=== PATIENT | female | born 1950 | race Caucasian/White ===

== ENCOUNTER 2018-10-29 19:17 | Emergency (ER) | payer MEDICARE, MEDICAID ==
[~2018-10-29] VITALS: Ht 167.6 cm; Wt 101.6 kg
--- NOTE | 2018-10-29 19:30 | ED Respiratory ---
General Chief Complaint: Respiratory Problems Stated Complaint: SOB History of Present Illness Date Seen by Provider: Oct 29, 2018 Time Seen by Provider: 19:30 Initial Comments 68 yo f known copd not on home oxygen, prior pe (per her report diagnosed in [place]) , Prior "collapsed lung" treated with bronchoscopy at [place] as well. p/w 2 weeks of sob and increassed cough generalized malaise no definite fever, no jamilah pain. then today three hours ago got acutely worse was much more sob and began to feel posterior left side chest pain Allergies and Home Medications Allergies Coded Allergies: No Known Drug Allergies (Unverified , 10/29/18) Patient Home Medication List Home Medication List Reviewed: Yes Review of Systems Review of Systems Constitutional: see HPI Respiratory: see HPI Cardiovascular: see HPI Gastrointestinal: no symptoms reported All Other Systems Reviewed Negative Unless Noted: Yes Past Rshocrv-Sadfrc-Bjjrtf Hx Past Med/Social Hx: Reviewed Nursing Past Med/Soc Hx Patient Social History Recent Foreign Travel: No Contact w/Someone Who Travel: No Physical Exam Vital Signs - First Documented 10/29/18 19:20 Temp 97.5 Pulse 116 Resp 22 B/P (MAP) 107/61 (76) Pulse Ox 90 O2 Delivery Nasal Cannula O2 Flow Rate 4.00 FiO2 90 Capillary Refill : Height: '" Weight: lbs. oz. kg; BMI Method: General Appearance: moderate distress HEENT: PERRL/EOMI Neck: non-tender, full range of motion Respiratory: other (moderate distress speaking only two or three word sentences. coarse b/l breath sounds decreased on the left. ) Cardiovascular: other (tachyardic difficult exam due to resp. tachypnea present.) Gastrointestinal: non tender, soft, no organomegaly Extremities: normal range of motion, other (b/l left greater than right 1-2 plus edema.) Neurologic/Psychiatric: no motor/sensory deficits, alert, other (anxiety but alert and oriented.) Skin: normal color, warm/dry Focused Exam Lactate Level 10/29/18 20:10: Lactic Acid Level 0.99 Lactic Acid Level Laboratory Tests Test 10/29/18 20:10 Lactic Acid Level 0.99 MMOL/L (0.50-2.00) Progress/Results/Core Measures Suspected Sepsis SIRS Temperature: Pulse: Respiratory Rate: Laboratory Tests 10/29/18 19:22: White Blood Count 20.4H Blood Pressure / Mean: 10/29/18 20:10: Lactic Acid Level 0.99 Laboratory Tests 10/29/18 19:22: Creatinine 0.69, INR Comment 1.1, Platelet Count 394, Total Bilirubin 0.4 Results/Orders Lab Results Laboratory Tests Test 10/29/18 19:22 10/29/18 20:10 Range/Units White Blood Count 20.4 H 4.3-11.0 10^3/uL Red Blood Count 5.67 4.35-5.85 10^6/uL Hemoglobin 14.7 11.5-16.0 G/DL Hematocrit 45 35-52 % Mean Corpuscular Volume 79 L 80-99 FL Mean Corpuscular Hemoglobin 26 25-34 PG Mean Corpuscular Hemoglobin Concent 33 32-36 G/DL Red Cell Distribution Width 14.6 H 10.0-14.5 % Platelet Count 394 130-400 10^3/uL Mean Platelet Volume 9.1 7.4-10.4 FL Neutrophils (%) (Auto) 79 H 42-75 % Lymphocytes (%) (Auto) 15 12-44 % Monocytes (%) (Auto) 5 0-12 % Eosinophils (%) (Auto) 1 0-10 % Basophils (%) (Auto) 0 0-10 % Neutrophils # (Auto) 16.1 H 1.8-7.8 X 10^3 Lymphocytes # (Auto) 3.0 1.0-4.0 X 10^3 Monocytes # (Auto) 1.1 H 0.0-1.0 X 10^3 Eosinophils # (Auto) 0.1 0.0-0.3 10^3/uL Basophils # (Auto) 0.0 0.0-0.1 10^3/uL Neutrophils % (Manual) 68 % Lymphocytes % (Manual) 7 % Monocytes % (Manual) 8 % Eosinophils % (Manual) 1 % Band Neutrophils 12 % Atypical Lymphocytes 4 % Prothrombin Time 14.6 12.2-14.7 SEC INR Comment 1.1 0.8-1.4 Sodium Level 120 *L 135-145 MMOL/L Potassium Level 4.8 3.6-5.0 MMOL/L Chloride Level 84 L 98-107 MMOL/L Carbon Dioxide Level 19 L 21-32 MMOL/L Anion Gap 17 H 5-14 MMOL/L Blood Urea Nitrogen 19 H 7-18 MG/DL Creatinine 0.69 0.60-1.30 MG/DL Estimat Glomerular Filtration Rate > 60 BUN/Creatinine Ratio 28 Glucose Level 123 H 70-105 MG/DL Calcium Level 9.7 8.5-10.1 MG/DL Corrected Calcium 9.9 8.5-10.1 MG/DL Total Bilirubin 0.4 0.1-1.0 MG/DL Aspartate Amino Transf (AST/SGOT) 17 5-34 U/L Alanine Aminotransferase (ALT/SGPT) 13 0-55 U/L Alkaline Phosphatase 93 40-136 U/L Troponin T 11 H <=10 NG/L Pro-B-Type Natriuretic Peptide 48.8 <75.0 PG/ML Total Protein 6.9 6.4-8.2 GM/DL Albumin 3.7 3.2-4.5 GM/DL Lactic Acid Level 0.99 0.50-2.00 MMOL/L Micro Results Microbiology 10/29/18 Influenza Types A,B Antigen (CHON) - Final, Complete My Orders Orders - JENNY BENJAMIN MD Chest 1 View Ap/Pa Only (10/29/18 19:41) Ekg Tracing (10/29/18 19:41) O2 (10/29/18 19:41) Saline Lock/Iv-Start (10/29/18 19:41) Monitor-Rhythm Ecg Trace Only (10/29/18 19:41) Albuterol/Ipra Inhalation Soln (Duoneb I (10/29/18 19:45) Svn Small Volume Nebulizer (10/29/18 19:41) Methylprednisolone Sod Succ (Solu-Medrol (10/29/18 19:45) Cbc And Manual Diff (10/29/18 19:41) Comprehensive Metabolic Panel (10/29/18 19:41) Troponin T (10/29/18 19:41) Blood Culture (10/29/18 19:45) Lactic Acid Analyzer (10/29/18 19:41) Blood Culture (10/29/18 19:41) Protime With Inr (10/29/18 19:41) Probnp Fs (10/29/18 20:02) Ua Culture If Indicated (10/29/18 20:09) Influenza A And B Antigens (10/29/18 20:09) Vancomycin Injection (Vancomycin Injecti (10/29/18 21:00) Piperacillin/Tazobactam (Bulk) (Zosyn In (10/29/18 21:00) Lorazepam Injection (Ativan Injection) (10/29/18 21:00) Ns Iv 1000 Ml (Sodium Chloride 0.9%) (10/29/18 21:15) Rivaroxaban Tablet (Xarelto Tablet) (10/29/18 21:15) Vancomycin Injection (Vancomycin Injecti (10/29/18 21:07) Water (Sterile) For Injection (Sterile W (10/29/18 21:07) Ns (Ivpb) (Sodium Chloride 0.9%) (10/29/18 21:07) Medications Given in ED Current Medications Medications Dose Ordered Sig/Salvador Route Start Time Stop Time Status Last Admin Dose Admin Albuterol/ Ipratropium 3 ml ONCE ONCE INH 10/29/18 19:45 10/29/18 19:46 DC 10/29/18 20:04 3 ML Lorazepam 0.5 mg ONCE ONCE IVP 10/29/18 21:00 10/29/18 21:01 UNV 10/29/18 21:12 0.5 MG Methylprednisolone Sodium Succinate 125 mg ONCE ONCE IVP 10/29/18 19:45 10/29/18 19:46 DC 10/29/18 20:04 125 MG Rivaroxaban 15 mg ONCE ONCE PO 10/29/18 21:15 10/29/18 21:16 UNV 10/29/18 21:33 15 MG Vital Signs/I&O 10/29/18 10/29/18 10/29/18 19:20 19:20 19:20 Temp 97.5 97.5 Pulse 116 116 Resp 22 22 B/P (MAP) 107/61 (76) 107/61 (76) Pulse Ox 90 90 90 O2 Delivery Nasal Cannula Nasal Cannula Nasal Cannula O2 Flow Rate 4.00 4.00 FiO2 90 Capillary Refill : Progress Note : Progress Note known copd not on oxygen, pe on xarelto p/w acute on subacute sob found to be hypoxic, 90 on 3-4 Liters , increased sob ddx pe, pna ptx FINDINGS: There is obscuration of the left hemidiaphragm consistent with left lower lobe infiltrate and probable effusion. Mild alveolar infiltrate, medially, in the right lung base. The upper lungs are clear. Heart is mildly enlarged. No evidence of pulmonary edema. IMPRESSION: Findings are consistent with bilateral lower lobe pneumonia, more severe on the left. 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 pt looked beter after duoneb in er, vanc/zosyn given (reports hx of mrsa and what sounds like septic shock at [place] last year), iv fluids given noted hyponatermia, pt is on hctz and also sick with pulmonary issues, will start with iv fluids and go from there. considered pe, seems like due to the above pna is much more likely diagnosis. would rather not delay transport any further at this time for further testing as we are in a freestanding er at this time. gave dose of xarelto (second dose for today) in case of small new pe although again i find pna to be much morfe likely dx. d/w boone doctor at [facility] who has accepted the patient in transfer. pt and son are aware of the plan and they voiced understanding. ECG Comment sinsu tach rate 109 v2 abnormal no stemi. intervals normal. Departure Impression Primary Impression: Pneumonia Additional Impression: Hyponatremia Disposition: XFER SHT-TRM HOSP Condition: Stable Transfer Method of Transfer: EMS Departure-Patient Inst. Referrals: NO,LOCAL PHYSICIAN (PCP) Primary Care Physician JENNY BENJAMIN MD Oct 29, 2018 19:30
[2018-10-29] MEDS ORDERED: RT-ALBUTEROL/IPRATROPIUM 3 ML (DUONEB) VIAL INH ONE (19:45)
[2018-10-29] MEDS ORDERED: methylPREDNISolone 125 MG (Solu-MEDROL) VIAL IVP ONE (19:45)
[2018-10-29 19:57] LABS: HEMATOCRIT 45 % (35-52); HEMOGLOBIN 14.7 G/DL (11.5-16.0); MEAN CORPUSCULAR HEMOGLOBIN 26 PG (25-34); MEAN CORPUSCULAR HGB CONC 33 G/DL (32-36); MEAN CORPUSCULAR VOLUME 79 FL (80-99); RED CELL DISTRIBUTION WIDTH 14.6 % (10.0-14.5); WHITE BLOOD COUNT 20.4 10^3/uL (4.3-11.0)
[2018-10-29 19:58] LABS: BASOPHILS % (AUTO) 0 % (0-10); EOSINOPHILS # (AUTO) 0.1 10^3/uL (0.0-0.3); EOSINOPHILS % (AUTO) 1 % (0-10); LYMPHOCYTES % (AUTO) 15 % (12-44); MEAN PLATELET VOLUME 9.1 FL (7.4-10.4); MONOCYTES # (AUTO) 1.1 X 10^3 (0.0-1.0); MONOCYTES % (AUTO) 5 % (0-12); NEUTROPHILS # (AUTO) 16.1 X 10^3 (1.8-7.8); NEUTROPHILS % (AUTO) 79 % (42-75); PLATELET COUNT 394 10^3/uL (130-400)
--- NOTE | 2018-10-29 20:45 | Diagnostic Imaging Report ---
INDICATION: Shortness of breath with back pain. EXAMINATION: Portable chest. FINDINGS: There is obscuration of the left hemidiaphragm consistent with left lower lobe infiltrate and probable effusion. Mild alveolar infiltrate, medially, in the right lung base. The upper lungs are clear. Heart is mildly enlarged. No evidence of pulmonary edema. IMPRESSION: Findings are consistent with bilateral lower lobe pneumonia, more severe on the left. Dictated by: Dictated on workstation # [id number]
[2018-10-29 20:48] LABS: INR 1.1 (0.8-1.4); PROTHROMBIN TIME PATIENT 14.6 SEC (12.2-14.7)
[2018-10-29 20:49] LABS: ATYPICAL LYMPHOCYTES 4 %; BAND NEUTROPHILS 12 %; EOSINOPHILS % (MANUAL) 1 %; LYMPHOCYTES % (MANUAL) 7 %; MONOCYTES % (MANUAL) 8 %; NEUTROPHILS % (MANUAL) 68 %
[2018-10-29 20:55] LABS: BUN/CREATININE RATIO 28; CARBON DIOXIDE 19 MMOL/L (21-32); CHLORIDE 84 MMOL/L (98-107); CREATININE SERUM 0.69 MG/DL (0.60-1.30); GFR ESTIMATED > 60; GLUCOSE 123 MG/DL (70-105); POTASSIUM 4.8 MMOL/L (3.6-5.0)
[2018-10-29 20:56] LABS: ALANINE AMINOTRANSFERASE 13 U/L (0-55); ALBUMIN 3.7 GM/DL (3.2-4.5); ALKALINE PHOSPHATASE 93 U/L (40-136); BILIRUBIN,TOTAL 0.4 MG/DL (0.1-1.0); CALCIUM 9.7 MG/DL (8.5-10.1); TOTAL PROTEIN 6.9 GM/DL (6.4-8.2)
[2018-10-29 20:57] LABS: SODIUM 120 MMOL/L (135-145)
[2018-10-29] MEDS ORDERED: LISINOPRIL HCTZ (20:57)
[2018-10-29] MEDS ORDERED: MONTELUKAST TAB 10MG (20:57)
[2018-10-29] MEDS ORDERED: BUDESONIDE 1 MG/2 ML (20:58)
[2018-10-29] MEDS ORDERED: IPRATROPIUM (20:58)
[2018-10-29] MEDS ORDERED: XARELTO 20 MG (20:58)
[2018-10-29] MEDS ORDERED: POTASSIUM CL 20MEQ ER TABLETS (20:58)
[2018-10-29] MEDS ORDERED: PREDNISONE 20 MG (20:58)
[2018-10-29] MEDS ORDERED: BUPRENORPHINE 600 MCG (20:58)
[2018-10-29] MEDS ORDERED: ALBUTEROL (20:58)
[2018-10-29] MEDS ORDERED: OXYCODONE 10 MG (20:58)
[2018-10-29] MEDS ORDERED: PROAIR HFA ORAL INH (200 PFS) (20:58)
[2018-10-29] MEDS ORDERED: PROMETHAZINE 12.5 MG (20:58)
[2018-10-29] MEDS ORDERED: PIPERACILLIN/TAZOBACTAM (BULK) 4.5 GM in NS (IVPB) 100 ML IV ONE (21:00)
[2018-10-29] MEDS ORDERED: VANCOMYCIN INJECTION 1,000 MG in NS (IVPB) 250 ML IV SCH (21:00)
[2018-10-29] MEDS ORDERED: LORazepam INJ 2 MG/ML (ATIVAN) VIAL IVP ONE (21:00)
[2018-10-29] MEDS ORDERED: WATER (STERILE) FOR INJECTION 20 ML ONE ×2 (21:07→21:53)
[2018-10-29] MEDS ORDERED: NS (IVPB) 250 ML ONE (21:07)
[2018-10-29] MEDS ORDERED: VANCOMYCIN 1000 MG/VIAL ONE (21:07)
[2018-10-29] MEDS ORDERED: NS IV 1000 ML 1,000 ML IV SCH (21:15)
[2018-10-29] MEDS ORDERED: RIVAROXABAN 15 MG TABLET (XARELTO) PO ONE (21:15)
[2018-10-29] MEDS ORDERED: fentaNYL INJECTION 100 MCG/2 ML AMP IVP ONE (21:45)
[2018-10-29] MEDS ORDERED: NS (IVPB) 100 ML ONE (21:53)
[2018-10-29] MEDS ORDERED: PIPERACILLIN/TAZO 4.5 GM VIAL (ZOSYN) IV ONE (21:53)
[2018-10-29 22:32] VITALS: BP 113/64
== END 2018-10-29 22:35 | disposition short-term general hospital (02) ==
LOC: EDUNIT# 19:17 → ER FS 19:19
DX: J18.9 Pneumonia, unspecified organism (principal); E87.1 Hypo-osmolality and hyponatremia; J44.9 Chronic obstructive pulmonary disease, unspecified
CPT/HCPCS: 36415; 71045; 80053; 83605; 83880; 84484; 85007; 85027; 85610; 87040; 87804

== ENCOUNTER 2019-07-29 14:15 | Emergency (ER) | payer MEDICARE, MEDICAID ==
[~2019-07-29] VITALS: Ht 167.7 cm; Wt 82.7 kg
[~2019-07-29 14:15] MED LIST: ALBUTEROL; BUDESONIDE 1 MG/2 ML; BUPRENORPHINE 600 MCG; IPRATROPIUM; LISINOPRIL HCTZ; MONTELUKAST TAB 10MG; OXYCODONE 10 MG; POTASSIUM CL 20MEQ ER TABLETS; PREDNISONE 20 MG; PROAIR HFA ORAL INH (200 PFS); PROMETHAZINE 12.5 MG; XARELTO 20 MG
[2019-07-29] MEDS ORDERED: fentaNYL INJECTION 100 MCG/2 ML AMP IVP ONE (14:45)
[2019-07-29] MEDS ORDERED: methylPREDNISolone 125 MG (Solu-MEDROL) VIAL IVP ONE (14:45)
[2019-07-29 14:57] LABS: HEMATOCRIT 43 % (35-52); HEMOGLOBIN 14.1 G/DL (11.5-16.0); MEAN CORPUSCULAR HEMOGLOBIN 26 PG (25-34); MEAN CORPUSCULAR HGB CONC 33 G/DL (32-36); MEAN CORPUSCULAR VOLUME 80 FL (80-99); MEAN PLATELET VOLUME 8.3 FL (7.4-10.4); PLATELET COUNT 393 10^3/uL (130-400); RED CELL DISTRIBUTION WIDTH 15.5 % (10.0-14.5); WHITE BLOOD COUNT 18.4 10^3/uL (4.3-11.0)
[2019-07-29 14:58] LABS: BASOPHILS % (AUTO) 0 % (0-10); EOSINOPHILS % (AUTO) 0 % (0-10)
[2019-07-29 14:59] LABS: LYMPHOCYTES # (AUTO) 1.3 X 10^3 (1.0-4.0); LYMPHOCYTES % (AUTO) 7 % (12-44); MONOCYTES # (AUTO) 1.7 X 10^3 (0.0-1.0); MONOCYTES % (AUTO) 10 % (0-12); NEUTROPHILS # (AUTO) 15.3 X 10^3 (1.8-7.8); NEUTROPHILS % (AUTO) 83 % (42-75)
--- NOTE | 2019-07-29 15:10 | Diagnostic Imaging Report ---
INDICATION: Dyspnea for two days. COMPARISON: 10/29/2018. DISCUSSION: Single portable upright view of the chest was obtained. Stable normal heart size. Probable scarring within the left lung base is stable. No new consolidation or pneumothorax. No osseous abnormality. IMPRESSION: 1. Stable chest. No acute cardiopulmonary process. Dictated by: Dictated on workstation # [id number]
[2019-07-29 15:14] LABS: BAND NEUTROPHILS 1 %; BASOPHILS % (MANUAL) 0 %; EOSINOPHILS % (MANUAL) 0 %; LYMPHOCYTES % (MANUAL) 8 %; MONOCYTES % (MANUAL) 8 %; NEUTROPHILS % (MANUAL) 83 %; RBC MORPH NORMAL
[2019-07-29 15:15] LABS: ALKALINE PHOSPHATASE 86 U/L (40-136); BILIRUBIN,TOTAL 0.7 MG/DL (0.1-1.0); BUN/CREATININE RATIO 19; CALCIUM 10.1 MG/DL (8.5-10.1); CARBON DIOXIDE 24 MMOL/L (21-32); CHLORIDE 89 MMOL/L (98-107); CREATININE SERUM 0.67 MG/DL (0.60-1.30); GFR ESTIMATED > 60; GLUCOSE 116 MG/DL (70-105); SODIUM 127 MMOL/L (135-145)
[2019-07-29 15:16] LABS: ALANINE AMINOTRANSFERASE 5 U/L (0-55); ALBUMIN 3.9 GM/DL (3.2-4.5); LIPASE 9 U/L (8-78); TOTAL PROTEIN 6.6 GM/DL (6.4-8.2)
[2019-07-29] MEDS ORDERED: NS IV 1000 ML 1,000 ML IV SCH (15:30)
[2019-07-29] MEDS ORDERED: morphine INJ 10 MG/ML 1ML (SYR OR VIAL) IVP STA (15:45)
--- NOTE | 2019-07-29 16:03 | ED Cough/URI ---
General Chief Complaint: Respiratory Problems Stated Complaint: SOA,ANXIETY Nursing Triage Note: Patient reports shortness of breath and weakness for 2 days. Sepsis Screen: Possible Sepsis Risk Source: patient, family Exam Limitations: no limitations History of Present Illness Date Seen by Provider: Jul 29, 2019 Time Seen by Provider: 15:00 Initial Comments Patient is his usual COPD and a prior history of PE and on xaralto. Patient said she did not missed any of her dosage of medications. She said since yesterday she's been feeling weak and short of breath and also her fibromyalgia is getting worse and was having joint pains. She denies having any fever at home. She does have mild cough. She is a chronic smoker. She denies having any chest pain or abdominal pain. Patient has a low-grade fever in the emergency room. Timing/Duration: yesterday Severity/Quality: mild Prior Episodes/Possible Cause: occasional episodes Modifying Factors: Improves With Albuterol Nebulizer Associated Symptoms: shortness of breath Allergies and Home Medications Allergies Coded Allergies: bupropion (Verified Allergy, Unknown, 07/29/19) Review of Systems Review of Systems Constitutional: see HPI, fever, malaise EENTM: no symptoms reported Respiratory: cough, short of breath Cardiovascular: no symptoms reported Gastrointestinal: No diarrhea, No nausea Genitourinary: No hematuria, No pain Musculoskeletal: joint pain, muscle pain Skin: see HPI Psychiatric/Neurological: Weakness Hematologic/Lymphatic: No Symptoms Reported Immunological/Allergic: no symptoms reported Past Ymxfjig-Xapnnh-Irrvgv Hx Patient Social History Type Used: Cigarettes 2nd Hand Smoke Exposure: Yes Recent Foreign Travel: No Contact w/Someone Who Travel: No Recent Infectious Disease Expo: No Recent Hopitalizations: No Seasonal Allergies Seasonal Allergies: No Past Medical History Surgeries: Yes ("intestinal bypass and 2 c-sections") Gallbladder Respiratory: Yes Pneumonia, COPD Currently Using CPAP: No Currently Using BIPAP: No Cardiac: Yes ("beginnings of CHF") Chronic Edema/Swelling, Hypertension Neurological: No Genitourinary: No Gastrointestinal: No Musculoskeletal: No Physical Exam Vital Signs - First Documented 07/29/19 14:22 Temp 37.6 Pulse 107 Resp 26 B/P (MAP) 127/59 (81) Pulse Ox 97 O2 Delivery Nasal Cannula O2 Flow Rate 4.00 Capillary Refill : Less Than 3 Seconds Height: 5'6.00" Weight: 224lbs. oz. [id number]; 29.00 BMI Method:Stated General Appearance: mild distress Eyes: Right Eye Normal Inspection, Right Eye PERRL, Right Eye EOMI; Bilateral Eye Normal Inspection, Bilateral Eye PERRL, Bilateral Eye EOMI HEENT: PERRL/EOMI, normal ENT inspection, TMs normal, pharynx normal Neck: non-tender, full range of motion, supple, normal inspection, carotid bruit Respiratory: chest non-tender, no respiratory distress, no accessory muscle use, decreased breath sounds Cardiovascular: normal peripheral pulses, regular rate, rhythm, no edema, no gallop, no JVD, no murmur, tachycardia Gastrointestinal: normal bowel sounds, non tender, soft, no organomegaly, no pulsatile mass Extremities: normal range of motion, non-tender, normal inspection, no pedal edema, no calf tenderness, normal capillary refill, pelvis stable Neurologic/Psychiatric: carpenter general II-XII nml as tested, no motor/sensory deficits, alert, normal mood/affect, oriented x 3 Skin: normal color, warm/dry Focused Exam Lactate Level 07/29/19 14:40: Lactic Acid Level 1.37 Lactic Acid Level Laboratory Tests Test 07/29/19 14:40 Lactic Acid Level 1.37 MMOL/L (0.50-2.00) Progress/Results/Core Measures Suspected Sepsis Recent Fever Within 48 Hours: No Infection Criteria Present: Suspected New Infection New/Unexplained Altered Menta: No Sepsis Screen: Possible Sepsis Risk SIRS Temperature: Pulse: 107 Respiratory Rate: 26 Laboratory Tests 07/29/19 14:40: White Blood Count 18.4H Blood Pressure 127 /59 Mean: 81 07/29/19 14:40: Lactic Acid Level 1.37 Laboratory Tests 07/29/19 14:40: Creatinine 0.67, Platelet Count 393, Total Bilirubin 0.7 Results/Orders Lab Results Laboratory Tests Test 07/29/19 14:40 Range/Units White Blood Count 18.4 H 4.3-11.0 10^3/uL Red Blood Count 5.34 4.35-5.85 10^6/uL Hemoglobin 14.1 11.5-16.0 G/DL Hematocrit 43 35-52 % Mean Corpuscular Volume 80 80-99 FL Mean Corpuscular Hemoglobin 26 25-34 PG Mean Corpuscular Hemoglobin Concent 33 32-36 G/DL Red Cell Distribution Width 15.5 H 10.0-14.5 % Platelet Count 393 130-400 10^3/uL Mean Platelet Volume 8.3 7.4-10.4 FL Neutrophils (%) (Auto) 83 H 42-75 % Lymphocytes (%) (Auto) 7 L 12-44 % Monocytes (%) (Auto) 10 0-12 % Eosinophils (%) (Auto) 0 0-10 % Basophils (%) (Auto) 0 0-10 % Neutrophils # (Auto) 15.3 H 1.8-7.8 X 10^3 Lymphocytes # (Auto) 1.3 1.0-4.0 X 10^3 Monocytes # (Auto) 1.7 H 0.0-1.0 X 10^3 Eosinophils # (Auto) 0.0 0.0-0.3 10^3/uL Basophils # (Auto) 0.0 0.0-0.1 10^3/uL Neutrophils % (Manual) 83 % Lymphocytes % (Manual) 8 % Monocytes % (Manual) 8 % Eosinophils % (Manual) 0 % Basophils % (Manual) 0 % Band Neutrophils 1 % Blood Morphology Comment NORMAL Sodium Level 127 L 135-145 MMOL/L Potassium Level 4.0 3.6-5.0 MMOL/L Chloride Level 89 L 98-107 MMOL/L Carbon Dioxide Level 24 21-32 MMOL/L Anion Gap 14 5-14 MMOL/L Blood Urea Nitrogen 13 7-18 MG/DL Creatinine 0.67 0.60-1.30 MG/DL Estimat Glomerular Filtration Rate > 60 BUN/Creatinine Ratio 19 Glucose Level 116 H 70-105 MG/DL Lactic Acid Level 1.37 0.50-2.00 MMOL/L Calcium Level 10.1 8.5-10.1 MG/DL Corrected Calcium 10.2 H 8.5-10.1 MG/DL Total Bilirubin 0.7 0.1-1.0 MG/DL Aspartate Amino Transf (AST/SGOT) 13 5-34 U/L Alanine Aminotransferase (ALT/SGPT) 5 0-55 U/L Alkaline Phosphatase 86 40-136 U/L Total Protein 6.6 6.4-8.2 GM/DL Albumin 3.9 3.2-4.5 GM/DL Lipase 9 8-78 U/L My hSay Day - JAIRO STAPLES MD Cbc With Automated Diff (12/25/19 14:36) Comprehensive Metabolic Panel (07/29/19 14:36) Lipase (07/29/19 14:36) Chest 1 View Ap/Pa Only (07/29/19 14:36) Methylprednisolone Sod Succ (Solu-Medrol (07/29/19 14:45) Fentanyl Injection (Sublimaze Injection (07/29/19 14:45) Manual Differential (07/29/19 14:40) Lactic Acid Analyzer (07/29/19 15:17) Ns Iv 1000 Ml (Sodium Chloride 0.9%) (07/29/19 15:30) Urinalysis (07/29/19 15:18) Morphine Injection (Morphine Injection (07/29/19 15:45) Albuterol/Ipra Inhalation Soln (Duoneb I (07/29/19 16:15) Svn Small Volume Nebulizer (07/29/19 16:12) Ceftriaxone For Iv Use (Rocephin For I (07/29/19 16:15) Medications Given in ED Current Medications Medications Dose Ordered Sig/Salvador Route Start Time Stop Time Status Last Admin Dose Admin Methylprednisolone Sodium Succinate 125 mg ONCE ONCE IVP 07/29/19 14:45 07/29/19 14:46 DC 07/29/19 15:06 125 MG Vital Signs/I&O 07/29/19 14:22 Temp 37.6 Pulse 107 Resp 26 B/P (MAP) 127/59 (81) Pulse Ox 97 O2 Delivery Nasal Cannula O2 Flow Rate 4.00 Capillary Refill : Less Than 3 Seconds Blood Pressure Mean: 81 Progress Note : Time: 16:23 Progress Note Patient has normal chest x-ray and her white blood cell count is elevated to 18,000. She is on chronic steroids. She does have mild expiratory wheezing. She has been saturating at 94% on room air. Advised patient to quit smoking and take antibiotics and steroids and use albuterol inhaler at home and drink a lot of fluids. She is comfortable with the plan. Diagnostic Imaging Diagonstic Imaging: Xray (neg) Departure Impression Primary Impression: COPD exacerbation Disposition: 01 HOME, SELF-CARE Condition: Improved Departure-Patient Inst. Decision time for Depature: 16:25 Referrals: NO,LOCAL PHYSICIAN (PCP/Family) Primary Care Physician Patient Instructions: Acute Bronchitis, Adult (DC) Add. Discharge Instructions: Follow-up with the primary care doctor in 3-5 days. Drink a lot of oral fluids and take adequateness. Quit smoking. Take antibiotics and steroids as prescribed. Due albuterol breathing treatments every 4 hours when necessary cough/shortness of breath. Return to the emergency room is symptoms worsens or has any concern. All discharge instructions reviewed with patient and/or family. Voiced understanding. Scripts Prednisone (Prednisone) 20 Mg Tab 40 MG PO DAILY, #5 TAB 0 Refills Prov: JAIRO STAPLES MD 07/29/19 Cefdinir (Cefdinir) 300 Mg Capsule 300 MG PO BID for 10 Days, #20 CAP 0 Refills Prov: JAIRO STAPLES MD 07/29/19 JAIRO STAPLES MD Jul 29, 2019 16:03
[2019-07-29] MEDS ORDERED: RT-ALBUTEROL/IPRATROPIUM 3 ML (DUONEB) VIAL INH ONE (16:15)
[2019-07-29] MEDS ORDERED: cefTRIAXone FOR IV USE 2,000 MG in WATER (STERILE) FOR INJECTION 20 ML IV ONE (16:15)
[2019-07-29] MEDS ORDERED: CEFD300C3 PO (16:26)
[2019-07-29] MEDS ORDERED: PRD20T PO (16:26)
[2019-07-29 17:15] VITALS: BP 130/60
== END 2019-07-29 17:24 | disposition home or self-care (01) ==
LOC: EDUNIT# 14:15 → ER FS 14:21
DX: J44.1 Chronic obstructive pulmonary disease with (acute) exacerbation (principal); I10 Essential (primary) hypertension; M79.7 Fibromyalgia; F17.210 Nicotine dependence, cigarettes, uncomplicated; Z86.711 Personal history of pulmonary embolism; Z79.01 Long term (current) use of anticoagulants; Z88.8 Allergy status to other drugs, medicaments and biological substances
CPT/HCPCS: 36415; 71045; 80053; 83605; 83690; 85007; 85027; 93005; 94640; 96361; 96374; 96375

== ENCOUNTER 2019-09-28 21:57 | Emergency (ER) | payer MEDICARE, MEDICAID ==
[~2019-09-28] VITALS: Ht 170.1 cm; Wt 105.0 kg
[~2019-09-28 21:57] MED LIST changes: +CEFD300C3 PO; +PRD20T PO
[2019-09-28 22:33] LABS: BASOPHILS % (AUTO) 0 % (0-10); EOSINOPHILS % (AUTO) 2 % (0-10); HEMATOCRIT 44 % (35-52); HEMOGLOBIN 14.7 G/DL (11.5-16.0); LYMPHOCYTES % (AUTO) 9 % (12-44); MEAN CORPUSCULAR HEMOGLOBIN 27 PG (25-34); MEAN CORPUSCULAR HGB CONC 34 G/DL (32-36); MEAN CORPUSCULAR VOLUME 82 FL (80-99); MEAN PLATELET VOLUME 8.1 FL (7.4-10.4); MONOCYTES % (AUTO) 6 % (0-12); NEUTROPHILS % (AUTO) 82 % (42-75); PLATELET COUNT 413 10^3/uL (130-400); RED CELL DISTRIBUTION WIDTH 15.4 % (10.0-14.5); WHITE BLOOD COUNT 20.4 10^3/uL (4.3-11.0)
[2019-09-28 22:34] LABS: BASOPHILS # (AUTO) 0.1 10^3/uL (0.0-0.1); EOSINOPHILS # (AUTO) 0.4 10^3/uL (0.0-0.3); LYMPHOCYTES # (AUTO) 1.8 X 10^3 (1.0-4.0); MONOCYTES # (AUTO) 1.2 X 10^3 (0.0-1.0); NEUTROPHILS # (AUTO) 16.7 X 10^3 (1.8-7.8)
[2019-09-28 22:51] LABS: ALANINE AMINOTRANSFERASE 14 U/L (0-55); ALKALINE PHOSPHATASE 88 U/L (40-136); BILIRUBIN,TOTAL 0.5 MG/DL (0.1-1.0); BUN/CREATININE RATIO 20; CALCIUM 10.2 MG/DL (8.5-10.1); CARBON DIOXIDE 25 MMOL/L (21-32); CHLORIDE 88 MMOL/L (98-107); GFR ESTIMATED > 60; GLUCOSE 121 MG/DL (70-105); POTASSIUM 4.2 MMOL/L (3.6-5.0); SODIUM 126 MMOL/L (135-145); TOTAL PROTEIN 6.9 GM/DL (6.4-8.2)
[2019-09-28 22:52] LABS: ALBUMIN 4.1 GM/DL (3.2-4.5)
--- NOTE | 2019-09-28 22:53 | ED Respiratory ---
General Chief Complaint: Respiratory Problems Stated Complaint: COPD COMPLICATIONS Nursing Triage Note: PT. WAS BROUGHT INTO THE ER BY EMS WITH THE C/O BEING SOB THAT STARTED TODAY. UPON ARRIVAL THE PT HAD RECEIVED 2 RT TREATMENTS. LUNG SOUNDS HAD WHEEZING THROUGHOUT. Source: patient, EMS History of Present Illness Date Seen by Provider: Sep 28, 2019 Time Seen by Provider: 22:09 Initial Comments 69-year-old female presenting with complaints of shortness of breath and cough that has worsened over the weekend. She also states that she has a chronic UTI that is been getting worse. She reports that she feels like she needs to be admitted to the hospital for her breathing and urine infection. She feels like things have gotten worse at home and her not improving. She has breathing difficulty to the point that she gets out of breath with minimal exertion. She lives alone and has difficulty trying to manage things at home for herself. She is on a single dose of Augmentin every day to help suppress a urine infection. She is waiting on the referral to see urology in [place]. She has chronic COPD and feels like it is worse as well. She does take 10 mg prednisone every day and occasionally has to use oxygen at home. Allergies and Home Medications Allergies Coded Allergies: bupropion (Verified Allergy, Unknown, 07/29/19) Home Medications Cefdinir 300 Mg Capsule, 300 MG PO BID Prescribed by: JAIRO STAPLES on 07/29/19 162 Prednisone 20 Mg Tab, 40 MG PO DAILY Prescribed by: JAIRO STAPLES on 07/29/19 1626 Patient Home Medication List Home Medication List Reviewed: Yes Review of Systems Review of Systems Constitutional: chills; No fever; malaise, weakness (general) EENTM: nose congestion; No ear pain, No vision loss Respiratory: cough, dyspnea on exertion; No hemoptysis; phlegm (increased), short of breath; No stridor; wheezing Cardiovascular: No chest pain, No edema, No syncope Gastrointestinal: no symptoms reported Genitourinary: dysuria (chronic UTI) Musculoskeletal: no symptoms reported Skin: No rash Psychiatric/Neurological: Weakness (generalized) Past Vtfsnuz-Zkviyx-Doldqh Hx Past Med/Social Hx: Reviewed Nursing Past Med/Soc Hx Patient Social History Type Used: Cigarettes 2nd Hand Smoke Exposure: Yes Recent Foreign Travel: No (') Contact w/Someone Who Travel: No Recent Infectious Disease Expo: No Recent Hopitalizations: No Physical Abuse: No Sexual Abuse: No Mistreated: No Fear: No Seasonal Allergies Seasonal Allergies: No Past Medical History Surgeries: Yes ("intestinal bypass and 2 c-sections") Gallbladder Respiratory: Yes Pneumonia, COPD Currently Using CPAP: No Currently Using BIPAP: No Cardiac: Yes ("beginnings of CHF") Chronic Edema/Swelling, Hypertension Neurological: No Genitourinary: No Gastrointestinal: No Musculoskeletal: No Endocrine: No HEENT: No Cancer: No Psychosocial: No Integumentary: No Blood Disorders: No Physical Exam Vital Signs - First Documented 09/28/19 09/28/19 21:57 22:09 Temp 36.2 Pulse 106 Resp 30 B/P (MAP) 122/72 (89) Pulse Ox 100 O2 Delivery Nasal Cannula O2 Flow Rate 2.00 Capillary Refill : Less Than 3 Seconds Height: 5'6.00" Weight: 224lbs. oz. [id number]; 36.00 BMI Method:Stated General Appearance: mild distress, obese HEENT: PERRL/EOMI; No pharyngeal erythema, No tonsillar exudate; other (slightly dry mucus membranes) Neck: non-tender, full range of motion, supple Respiratory: chest non-tender, decreased breath sounds, accessory muscle use, rhonchi, wheezing Cardiovascular: normal peripheral pulses, regular rate, rhythm Gastrointestinal: normal bowel sounds, soft, no pulsatile mass Extremities: normal range of motion, normal capillary refill Neurologic/Psychiatric: alert, normal mood/affect, oriented x 3 Skin: normal color, warm/dry Focused Exam Lactate Level 09/28/19 22:30: Lactic Acid Level 1.25 Lactic Acid Level Laboratory Tests Test 09/28/19 22:30 Lactic Acid Level 1.25 MMOL/L (0.50-2.00) Progress/Results/Core Measures Suspected Sepsis Recent Fever Within 48 Hours: No Infection Criteria Present: None New/Unexplained Altered Menta: No Sepsis Screen: No Definite Risk SIRS Temperature: Pulse: 106 Respiratory Rate: 30 Laboratory Tests 09/28/19 22:02: White Blood Count 20.4H Blood Pressure 122 /72 Mean: 89 09/28/19 22:30: Lactic Acid Level 1.25 Laboratory Tests 09/28/19 22:02: Creatinine 0.70, Platelet Count 413H, Total Bilirubin 0.5 Results/Orders Lab Results Laboratory Tests Test 09/28/19 22:02 09/28/19 22:30 09/28/19 23:40 Range/Units White Blood Count 20.4 H 4.3-11.0 10^3/uL Red Blood Count 5.35 4.35-5.85 10^6/uL Hemoglobin 14.7 11.5-16.0 G/DL Hematocrit 44 35-52 % Mean Corpuscular Volume 82 80-99 FL Mean Corpuscular Hemoglobin 27 25-34 PG Mean Corpuscular Hemoglobin Concent 34 32-36 G/DL Red Cell Distribution Width 15.4 H 10.0-14.5 % Platelet Count 413 H 130-400 10^3/uL Mean Platelet Volume 8.1 7.4-10.4 FL Neutrophils (%) (Auto) 82 H 42-75 % Lymphocytes (%) (Auto) 9 L 12-44 % Monocytes (%) (Auto) 6 0-12 % Eosinophils (%) (Auto) 2 0-10 % Basophils (%) (Auto) 0 0-10 % Neutrophils # (Auto) 16.7 H 1.8-7.8 X 10^3 Lymphocytes # (Auto) 1.8 1.0-4.0 X 10^3 Monocytes # (Auto) 1.2 H 0.0-1.0 X 10^3 Eosinophils # (Auto) 0.4 H 0.0-0.3 10^3/uL Basophils # (Auto) 0.1 0.0-0.1 10^3/uL Neutrophils % (Manual) 88 % Lymphocytes % (Manual) 4 % Monocytes % (Manual) 6 % Eosinophils % (Manual) 1 % Basophils % (Manual) 0 % Band Neutrophils 1 % Sodium Level 126 L 135-145 MMOL/L Potassium Level 4.2 3.6-5.0 MMOL/L Chloride Level 88 L 98-107 MMOL/L Carbon Dioxide Level 25 21-32 MMOL/L Anion Gap 13 5-14 MMOL/L Blood Urea Nitrogen 14 7-18 MG/DL Creatinine 0.70 0.60-1.30 MG/DL Estimat Glomerular Filtration Rate > 60 BUN/Creatinine Ratio 20 Glucose Level 121 H 70-105 MG/DL Calcium Level 10.2 H 8.5-10.1 MG/DL Corrected Calcium 10.1 8.5-10.1 MG/DL Total Bilirubin 0.5 0.1-1.0 MG/DL Aspartate Amino Transf (AST/SGOT) 15 5-34 U/L Alanine Aminotransferase (ALT/SGPT) 14 0-55 U/L Alkaline Phosphatase 88 40-136 U/L Total Protein 6.9 6.4-8.2 GM/DL Albumin 4.1 3.2-4.5 GM/DL Lactic Acid Level 1.25 0.50-2.00 MMOL/L Urine Color YELLOW Urine Clarity CLEAR Urine pH 5.5 5-9 Urine Specific [place] 1.010 L 1.016-1.022 Urine Protein NEGATIVE NEGATIVE Urine Glucose (UA) NEGATIVE NEGATIVE Urine Ketones NEGATIVE NEGATIVE Urine Nitrite NEGATIVE NEGATIVE Urine Bilirubin NEGATIVE NEGATIVE Urine Urobilinogen 0.2 < = 1.0 MG/DL Urine Leukocyte Esterase NEGATIVE NEGATIVE Urine RBC (Auto) TRACE H NEGATIVE Urine RBC NONE /HPF Urine WBC NONE /HPF Urine Squamous Epithelial Cells 2-5 /HPF Urine Crystals NONE /LPF Urine Bacteria NEGATIVE /HPF Urine Casts NONE /LPF Urine Mucus NONE /LPF Urine Culture Indicated NO Micro Results Microbiology 09/28/19 Influenza Types A,B Antigen ([facility]ON) - Final, Complete My Orders Orders - WHITLEY EGAN MD Cbc With Automated Diff (09/28/19 22:11) Comprehensive Metabolic Panel (09/28/19 22:11) Blood Culture (09/28/19 22:11) Chest Pa/Lat (2 View) (09/28/19 22:11) Ekg Tracing (09/28/19 22:11) O2 (09/28/19 22:11) Ed Iv/Invasive Line Start (09/28/19 22:11) Sputum Culture (09/28/19 22:11) Monitor-Rhythm Ecg Trace Only (09/28/19 22:11) Lactic Acid Analyzer (09/28/19 22:11) Influenza A And B Antigens (09/28/19 22:11) Manual Differential (09/28/19 22:02) Ua Culture If Indicated (09/28/19 23:27) Cefepime Injection (Maxipime Injection) (09/28/19 23:27) Methylprednisolone Sod Succ (Solu-Medrol (09/28/19 23:27) Ns Iv 1000 Ml (Sodium Chloride 0.9%) (09/29/19 01:00) Ondansetron Injection (Zofran Injectio (09/29/19 01:21) Vital Signs/I&O 09/28/19 09/28/19 09/28/19 21:57 22:09 23:51 Temp 36.2 36.4 Pulse 106 97 Resp 30 24 B/P (MAP) 122/72 (89) 119/70 Pulse Ox 100 100 96 O2 Delivery Nasal Cannula Nasal Cannula Nasal Cannula O2 Flow Rate 2.00 2.00 Capillary Refill : Less Than 3 Seconds Blood Pressure Mean: 89 Progress Note #1: Progress Note check labs, CXR and ECG. Check influenza as well as blood and sputum cultures. Supplemental oxygen and breathing treatments for the patient. She is requesting to be admitted for her breathing and urine infection. Will check tests and determine if she meets criteria for admit. Progress Note #2: Time: 23:17 Progress Note When reviewing the results and CXR she has increased WBC compared to her baseline with left shift. Lactic acid normal at 1.25. She also has increased RLL infiltrate compared to prior imaging. Discussed with Dr. Cleaning for the hospitalist service at [facility] and he accepted the patient for admission with pneumonia and COPD exacerbation. Progress Note #3: Time: 23:31 Progress Note When update patient about decision to admit and test results she refuses admission to [facility] and stated that she wanted to go to [place]. She wanted to be where Dr. Espinoza might be able to see her. She refused blood gas in the would help us evaluate her oxygenation status. She states that she would only go to [place]. Will start antibiotics here and based off of the pneumonia order set from [place] it had recommended cefepime so that was alre eb ordered. Will contact [facility] to see about reaching out to Dr. Espinoza or the on-call doctor about admission. Progress Note #4: Time: 23:41 Progress Note Discussed with the nursing staff at [facility] and they will page Dr. Guthrie to call me back. He is hospitalist reproduction order processor dennise. Progress Note #5: Time: 23:[address] Guthrie said that he was accepting his patients at this time and so I checked with Dr. Espinoza and he accepted the patient for transfer and admit at 0009 ECG Initial ECG Impression Date: Sep 28, 2019 Initial ECG Impression Time: 22:30 Initial ECG Rate: 88 Initial ECG Rhythm: Normal Sinus Initial ECG Comparisson: No Previous ECG Available Comment Normal sinus rhythm with a heart rate of 80 bpm. Left anterior fascicular block. QT interval 343 ms and a QTc interval 415 ms. ND interval of 173 ms. No prior tracing available for comparison. Diagnostic Imaging Diagonstic Imaging: Xray Plain Films/CT/US/NM/MRI: chest Comments On my review of the 2 view chest x-ray she has increased lung markings in the right lower lobe compared to her previous films. Will treat for right lower lobe pneumonia Departure Impression Primary Impression: Right lower lobe pneumonia Qualified Codes: J18.1 - Lobar pneumonia, unspecified organism Additional Impression: COPD with exacerbation Disposition: SHT-TRM HOSP Condition: Stable Transfer Transfer Reason: Patient preference Transfer Progress Notes 0009 Dr. Espinoza accepted this patient for transfer and admit to [facility] Transfer Facility: [facility] Method of Transfer: EMS Departure-Patient Inst. Referrals: BROWN ESPINOZA DO (PCP/Family) Primary Care Physician WHITLEY EGAN MD Sep 28, 2019 22:53
[2019-09-28 22:58] LABS: BAND NEUTROPHILS 1 %; BASOPHILS % (MANUAL) 0 %; EOSINOPHILS % (MANUAL) 1 %; LYMPHOCYTES % (MANUAL) 4 %; MONOCYTES % (MANUAL) 6 %; NEUTROPHILS % (MANUAL) 88 %
--- NOTE | 2019-09-28 23:23 | NUR ---
PT. REFUSED TO HAVE THE ABG DONE.
[2019-09-28] MEDS ORDERED: CEFEPIME INJECTION 2,000 MG in WATER (STERILE) FOR INJECTION 20 ML IV STA (23:27)
[2019-09-28] MEDS ORDERED: methylPREDNISolone 40 MG/ML (Solu-MEDROL) VIAL IV STA (23:27)
--- NOTE | 2019-09-28 23:48 | NUR ---
WE RECEIVED A ROOM NUMBER IN [place] VIA [facility] AND THE PT STATED SHE WANTED TO GO TO [place] SO DOCTOR EGAN CALLED [place]. WE ARE WAITING FOR DOCTOR PIERCE TO ACCEPT THE PT AND THEN WE WILL TRANSFER.
[2019-09-28 23:50] LABS: BACTERIA,URINE NEGATIVE /HPF; BILIRUBIN,URINE NEGATIVE (NEGATIVE); CLARITY,URINE CLEAR; COLOR,URINE YELLOW; GLUCOSE, URINE (UA) NEGATIVE (NEGATIVE); KETONES,URINE NEGATIVE (NEGATIVE); LEUKOCYTE ESTERASE ,URINE NEGATIVE (NEGATIVE); NITRITE,URINE NEGATIVE (NEGATIVE); PH,URINE 5.5 (5-9); PROTEIN,URINE NEGATIVE (NEGATIVE)
[2019-09-28 23:51] VITALS: BP 119/70
[2019-09-29] MEDS ORDERED: NS IV 1000 ML 1,000 ML IV SCH (01:00)
[2019-09-29] MEDS ORDERED: ONDANSETRON 4 MG/2 ML (SDV) Z0FRAN IVP STA (01:21)
--- NOTE | 2019-09-29 06:15 | Diagnostic Imaging Report ---
HISTORY: Shortness of breath TECHNIQUE: 2 views of the chest COMPARISON: 07/29/2019 FINDINGS: Lung volumes are normal. No new consolidation is seen. Haziness in the lung bases is thought to be due to overlying soft tissue and appears stable since the prior study. No significant pleural effusion or pneumothorax is seen. The cardiac silhouette is stable in size. IMPRESSION: 1. Chest appears stable compared to the prior exam. No new consolidation is seen. Dictated by: Dictated on workstation # [id number]
== END 2019-09-29 02:15 | disposition short-term general hospital (02) ==
LOC: EDUNIT# 21:57 → ER FS 21:59
DX: J18.9 Pneumonia, unspecified organism (principal); J44.1 Chronic obstructive pulmonary disease with (acute) exacerbation; Z88.8 Allergy status to other drugs, medicaments and biological substances; Z79.52 Long term (current) use of systemic steroids; Z77.22 Contact with and (suspected) exposure to environmental tobacco smoke (acute) (chronic)
CPT/HCPCS: 36415; 71046; 80053; 81000; 83605; 85007; 85027; 87040; 87804; 93005; 93041; 96374; 96375

== ENCOUNTER 2019-12-26 23:25 | Emergency (ER) | payer MEDICARE, MEDICAID ==
[~2019-12-26] VITALS: Ht 170 cm; Wt 109.0 kg
--- OUTSIDE RECORDS SUMMARY | 2019-12-26 23:37 | XMS REPORT | Continuity of Care Document ---
Author Organization Unknown Address Unknown Phone Unavailable Allergies Active Description Code Type Severity Reaction Onset Reported/Identified Relationship to Patient Clinical Status Yes No Known Drug Allergies [id number] Drug Allergy Unknown N/A 10/29/2018 Yes bupropion [id number] Drug Allergy Unknown N/A 07/29/2019 Medications There is no data. Problems Date Dx Coded Attending Type Code Diagnosis Diagnosed By 10/29/2018 JENNY BENJAMIN MD, Ot E87.1 HYPO-OSMOLALITY AND HYPONATREMIA 10/29/2018 JENNY BENJAMIN MD Ot J18.9 PNEUMONIA, UNSPECIFIED ORGANISM 10/29/2018 JENNY BENJAMIN MD, Ot J44.9 CHRONIC OBSTRUCTIVE PULMONARY DISEASE, U 10/29/2018 JENNY BENJAMIN MD Ot R06.02 SHORTNESS OF BREATH 11/01/2018 JENNY BENJAMIN MD, Ot E87.1 HYPO-OSMOLALITY AND HYPONATREMIA 11/01/2018 JENNY BENJAMIN MD, Ot J18.9 PNEUMONIA, UNSPECIFIED ORGANISM 11/01/2018 JENNY BENJAMIN MD, Ot J44.9 CHRONIC OBSTRUCTIVE PULMONARY DISEASE, U 11/01/2018 JENNY BENJAMIN MD Ot R06.02 SHORTNESS OF BREATH 07/29/2019 JAIRO STAPLES MD Ot F17.210 NICOTINE DEPENDENCE, CIGARETTES, UNCOMPL 07/29/2019 JAIRO STAPLES MD Ot I10 ESSENTIAL (PRIMARY) HYPERTENSION 07/29/2019 JAIRO STAPLES MD Ot J44.1 CHRONIC OBSTRUCTIVE PULMONARY DISEASE W 07/29/2019 JAIRO STAPLES MD Ot M79.7 FIBROMYALGIA 07/29/2019 JAIRO STAPLES MD Ot R06.02 SHORTNESS OF BREATH 07/29/2019 JAIRO STAPLES MD Ot 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 07/29/2019 JAIRO STAPLES MD Ot Z86.711 PERSONAL HISTORY OF PULMONARY EMBOLISM 07/29/2019 JAIRO STAPLES MD Ot Z88.8 ALLERGY STATUS TO OTH DRUG/MEDS/BIOL SUB 08/03/2019 JAIRO STAPLES MD Ot F17.210 NICOTINE DEPENDENCE, CIGARETTES, UNCOMPL 08/03/2019 JAIRO STAPLES MD Ot I10 ESSENTIAL (PRIMARY) HYPERTENSION 08/03/2019 JAIRO STAPLES MD, Ot J44.1 CHRONIC OBSTRUCTIVE PULMONARY DISEASE W 08/03/2019 JAIRO STAPLES MD Ot M79.7 FIBROMYALGIA 08/03/2019 JAIRO STAPLES MD Ot R06.02 SHORTNESS OF BREATH 08/03/2019 JAIRO STAPLES MD Ot 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 08/03/2019 JAIRO STAPLES MD, Ot Z86.711 PERSONAL HISTORY OF PULMONARY EMBOLISM 08/03/2019 JAIRO STAPLES MD, Ot Z88.8 ALLERGY STATUS TO OTH DRUG/MEDS/BIOL SUB 09/29/2019 WHITLEY EGAN MD, Ot J18.9 PNEUMONIA, UNSPECIFIED ORGANISM 09/29/2019 WHITLEY EGAN MD, Ot J44.1 CHRONIC OBSTRUCTIVE PULMONARY DISEASE W 09/29/2019 WHITLEY EGAN MD, Ot Z77.2 2 CNTCT W AND EXPSR TO ENVIRON TOBACCO SMO 09/29/2019 WHITLEY EGAN MD, Ot Z79.5 2 SNF (CURRENT) USE OF SYSTEMIC STER 09/29/2019 WHITLEY EGAN MD, Ot Z88.8 ALLERGY STATUS TO OTH DRUG/MEDS/BIOL SUB 10/06/2019 WHITLEY EGAN MD, Ot J18.9 PNEUMONIA, UNSPECIFIED ORGANISM 10/06/2019 WHITLEY EGAN MD, Ot J44.1 CHRONIC OBSTRUCTIVE PULMONARY DISEASE W 10/06/2019 WHITLEY EGAN MD, Ot Z77.2 2 CNTCT W AND EXPSR TO ENVIRON TOBACCO SMO 10/06/2019 WHITLEY EGAN MD, Ot Z79.5 2 EMC STORAGE ARCHITECT (CURRENT) USE OF SYSTEMIC STER 10/06/2019 WHITLEY EGAN MD, Ot Z88.8 ALLERGY STATUS TO OTH DRUG/MEDS/BIOL SUB Procedures There is no data. Results Test Result Range Blood CBC with ordered manual differenti al panel - 10/29/18 19:22 Blood leukocytes automated count (number/volume) 20.4 10*3/uL 4.3-11.0 Blood erythrocytes automated count (number/volume) 5.67 10*6/uL 4.35-5.85 Venous blood hemoglobin measurement (mass/volume) 14.7 g/dL 11.5-16.0 Blood hematocrit (volume fraction) 45 % 35-52 Automated erythrocyte mean corpuscular volume 79 [ foz_us] 80-99 Automated erythrocyte mean corpuscular h emoglobin (mass per erythrocyte) 26 pg 25-34 Automated erythrocyte mean corpuscular h emoglobin concentration measurement (mass/volume) 33 g/dL 32-36 Automated erythrocyte distribution width ratio 14. 6 % 10.0- 14.5 Automated blood platelet count (count/volume) 394 10*3/uL 130-400 Automated blood platelet mean volume measurement 9.1 [foz_us] 7.4-10.4 Automated blood neutrophils/100 leukocytes 79 % 42-75 Automated blood lymphocytes/100 leukocytes 15 % 12-44 Blood monocytes/100 leukocytes 8 % NRG Automated blood eosinophils/100 leukocytes 1 % 0-10 Automated blood basophils/100 leukocytes 0 % 0-10 Blood neutrophils automated count (number/volume) 16.1 10*3 1.8-7.8 Blood lymphocytes automated count (number/volume) 3.0 10*3 1.0-4.0 Blood monocytes automated count (number/volume) 1. 1 10*3 0.0-1.0 Automated eosinophil count 0.1 10*3/uL 0 .0-0.3 Automated blood basophil count (count/volume) 0.0 10*3/uL 0.0-0.1 Manual blood segmented neutrophils/100 leukocytes 68 % NRG Blood band neutrophils/100 leukocytes 12 % NRG Manual blood lymphocytes/100 leukocytes 7 % NRG Manual eosinophils/100 leukocytes in nose 1 % NRG Manual blood lymphocytes variant/100 leukocytes 4 % NRG PT panel in platelet poor plasma by coag ulation assay - 10/29/18 19:22 Prothrombin time (PT) in platelet poor plasma by coagu lation assay 14.6 s 12.2-14.7 INR in platelet poor plasma or blood by coagulation as say 1.1 0.8-1.4 PROBNP FS - 03/27/19 19:22 PROBNP FS 48.8 pg/mL <75.0 Comprehensive metabolic panel - 10/29/18 19:22 Serum or plasma sodium measurement (moles/volume) 120 mmol/L 135-145 Serum or plasma potassium measurement (moles/volume) 4.8 mmol/L 3.6-5.0 Serum or plasma chloride measurement (moles/volume) 84 mmol/L 98-107 Carbon dioxide 19 mmol/L 21-32 Serum or plasma anion gap determination (moles/volume) 17 mmol/L 5-14 Serum or plasma urea nitrogen measurement (mass/volume ) 19 mg/dL 7-18 Serum or plasma creatinine measurement (mass/volume) 0.69 mg/dL 0.60-1.30 Serum or plasma urea nitrogen/creatinine mass ratio 28 NRG Serum or plasma creatinine measurement w ith calculation of estimated glomerular filtration rate > NRG Serum or plasma glucose measurement (mass/volume) 123 mg/dL 70-105 Serum or plasma calcium measurement (mass/volume) 9.7 mg/dL 8.5-10.1 Serum or plasma total bilirubin measurement (mass/volu me) 0.4 mg/dL 0.1-1.0 Serum or plasma alkaline phosphatase jevon surement (enzymatic activity/volume) 93 U/L 40-136 Serum or plasma aspartate aminotransfera se measurement (enzymatic activity/volume) 17 U/L 5-34 Serum or plasma alanine aminotransferase measurement (enzymatic activity/volume) 13 U/L 0-55 Serum or plasma protein measurement (mass/volume) 6.9 g/dL 6.4-8.2 Serum or plasma albumin measurement (mass/volume) 3.7 g/dL 3.2-4.5 CALCIUM CORRECTED 9.9 mg/dL 8.5-10.1 TROPONIN T - 10/29/18 19:22 TROPONIN T 11 % <=10 Blood lactic acid measurement (moles/vol ume) - 10/29/18 20:10 Blood lactic acid measurement (moles/volume) 0.99 mmol/L 0.50-2.00 Bacterial blood culture - 10/29/18 20:10 Bacterial blood culture NG [facility] Influenza virus A and B antigen detectio n - 10/29/18 20:20 FLU RESULT NEGATIVE FOR INFLUENZA A AND B ANTIGENS BY IA NR Bacterial blood culture - 10/29/18 21:15 Bacterial blood culture NG NR Complete blood count (CBC) with automate d white blood cell (WBC) differential - 07/29/19 14:40 Blood leukocytes automated count (number/volume) 18.4 10*3/uL 4.3-11.0 Blood erythrocytes automated count (number/volume) 5.34 10*6/uL 4.35-5.85 Venous blood hemoglobin measurement (mass/volume) 14.1 g/dL 11.5-16.0 Blood hematocrit (volume fraction) 43 % 35-52 Automated erythrocyte mean corpuscular volume 80 [ foz_us] 80-99 Automated erythrocyte mean corpuscular h emoglobin (mass per erythrocyte) 26 pg 25-34 Automated erythrocyte mean corpuscular h emoglobin concentration measurement (mass/volume) 33 g/dL 32-36 Automated erythrocyte distribution width ratio 15. 5 % 10.0- 14.5 Automated blood platelet count (count/volume) 393 10*3/uL 130-400 Automated blood platelet mean volume measurement 8.3 [foz_us] 7.4-10.4 Automated blood neutrophils/100 leukocytes 83 % 42-75 Automated blood lymphocytes/100 leukocytes 7 % 12-44 Blood monocytes/100 leukocytes 10 % 0-12 Automated blood eosinophils/100 leukocytes 0 % 0-10 Automated blood basophils/100 leukocytes 0 % 0-10 Blood neutrophils automated count (number/volume) 15.3 10*3 1.8-7.8 Blood lymphocytes automated count (number/volume) 1.3 10*3 1.0-4.0 Blood monocytes automated count (number/volume) 1. 7 10*3 0.0-1.0 Automated eosinophil count 0.0 10*3/uL 0 .0-0.3 Automated blood basophil count (count/volume) 0.0 10*3/uL 0.0-0.1 Manual absolute plasma cell count - 07/06 12/21 14:40 Blood monocytes/100 leukocytes 8 % NRG Manual blood segmented neutrophils/100 leukocytes 83 % NRG Blood band neutrophils/100 leukocytes 1 % NRG Manual blood lymphocytes/100 leukocytes 8 % NRG Manual eosinophils/100 leukocytes in nose 0 % NRG Manual blood basophils/100 leukocytes 0 % NRG Blood erythrocyte morphology finding identification NORMAL NR Comprehensive metabolic panel - 07/29/19 14:40 Serum or plasma sodium measurement (moles/volume) 127 mmol/L 135-145 Serum or plasma potassium measurement (moles/volume) 4.0 mmol/L 3.6-5.0 Serum or plasma chloride measurement (moles/volume) 89 mmol/L 98-107 Carbon dioxide 24 mmol/L 21-32 Serum or plasma anion gap determination (moles/volume) 14 mmol/L 5-14 Serum or plasma urea nitrogen measurement (mass/volume ) 13 mg/dL 7-18 Serum or plasma creatinine measurement (mass/volume) 0.67 mg/dL 0.60-1.30 Serum or plasma urea nitrogen/creatinine mass ratio 19 NRG Serum or plasma creatinine measurement w ith calculation of estimated glomerular filtration rate > NRG Serum or plasma glucose measurement (mass/volume) 116 mg/dL 70-105 Serum or plasma calcium measurement (mass/volume) 10.1 mg/dL 8.5-10.1 Serum or plasma total bilirubin measurement (mass/volu me) 0.7 mg/dL 0.1-1.0 Serum or plasma alkaline phosphatase jevon surement (enzymatic activity/volume) 86 U/L 40-136 Serum or plasma aspartate aminotransfera se measurement (enzymatic activity/volume) 13 U/L 5-34 Serum or plasma alanine aminotransferase measurement (enzymatic activity/volume) 5 U/L 0-55 Serum or plasma protein measurement (mass/volume) 6.6 g/dL 6.4-8.2 Serum or plasma albumin measurement (mass/volume) 3.9 g/dL 3.2-4.5 CALCIUM CORRECTED 10.2 mg/dL 8.5-10.1 Lipase - 07/29/19 14:40 Lipase 9 U/L 8-78 Blood lactic acid measurement (moles/vol ume) - 07/29/19 14:40 Blood lactic acid measurement (moles/volume) 1.37 mmol/L 0.50-2.00 Complete blood count (CBC) with automate d white blood cell (WBC) differential - 09/28/19 22:02 Blood leukocytes automated count (number/volume) 20.4 10*3/uL 4.3-11.0 Blood erythrocytes automated count (number/volume) 5.35 10*6/uL 4.35-5.85 Venous blood hemoglobin measurement (mass/volume) 14.7 g/dL 11.5-16.0 Blood hematocrit (volume fraction) 44 % 35-52 Automated erythrocyte mean corpuscular volume 82 [ foz_us] 80-99 Automated erythrocyte mean corpuscular h emoglobin (mass per erythrocyte) 27 pg 25-34 Automated erythrocyte mean corpuscular h emoglobin concentration measurement (mass/volume) 34 g/dL 32-36 Automated erythrocyte distribution width ratio 15. 4 % 10.0- 14.5 Automated blood platelet count (count/volume) 413 10*3/uL 130-400 Automated blood platelet mean volume measurement 8.1 [foz_us] 7.4-10.4 Automated blood neutrophils/100 leukocytes 82 % 42-75 Automated blood lymphocytes/100 leukocytes 9 % 12-44 Blood monocytes/100 leukocytes 6 % 0-12 Automated blood eosinophils/100 leukocytes 2 % 0-10 Automated blood basophils/100 leukocytes 0 % 0-10 Blood neutrophils automated count (number/volume) 16.7 10*3 1.8-7.8 Blood lymphocytes automated count (number/volume) 1.8 10*3 1.0-4.0 Blood monocytes automated count (number/volume) 1. 2 10*3 0.0-1.0 Automated eosinophil count 0.4 10*3/uL 0 .0-0.3 Automated blood basophil count (count/volume) 0.1 10*3/uL 0.0-0.1 Comprehensive metabolic panel - 09/28/19 22:02 Serum or plasma sodium measurement (moles/volume) 126 mmol/L 135-145 Serum or plasma potassium measurement (moles/volume) 4.2 mmol/L 3.6-5.0 Serum or plasma chloride measurement (moles/volume) 88 mmol/L 98-107 Carbon dioxide 25 mmol/L 21-32 Serum or plasma anion gap determination (moles/volume) 13 mmol/L 5-14 Serum or plasma urea nitrogen measurement (mass/volume ) 14 mg/dL 7-18 Serum or plasma creatinine measurement (mass/volume) 0.70 mg/dL 0.60-1.30 Serum or plasma urea nitrogen/creatinine mass ratio 20 NRG Serum or plasma creatinine measurement w ith calculation of estimated glomerular filtration rate > NRG Serum or plasma glucose measurement (mass/volume) 121 mg/dL 70-105 Serum or plasma calcium measurement (mass/volume) 10.2 mg/dL 8.5-10.1 Serum or plasma total bilirubin measurement (mass/volu me) 0.5 mg/dL 0.1-1.0 Serum or plasma alkaline phosphatase jevon surement (enzymatic activity/volume) 88 U/L 40-136 Serum or plasma aspartate aminotransfera se measurement (enzymatic activity/volume) 15 U/L 5-34 Serum or plasma alanine aminotransferase measurement (enzymatic activity/volume) 14 U/L 0-55 Serum or plasma protein measurement (mass/volume) 6.9 g/dL 6.4-8.2 Serum or plasma albumin measurement (mass/volume) 4.1 g/dL 3.2-4.5 CALCIUM CORRECTED 10.1 mg/dL 8.5-10.1 Manual absolute plasma cell count - 09/06 11/22 22:02 Blood monocytes/100 leukocytes 6 % NRG Manual blood segmented neutrophils/100 leukocytes 88 % NRG Blood band neutrophils/100 leukocytes 1 % NRG Manual blood lymphocytes/100 leukocytes 4 % NRG Manual eosinophils/100 leukocytes in nose 1 % NRG Manual blood basophils/100 leukocytes 0 % NRG Blood lactic acid measurement (moles/vol ume) - 09/28/19 22:30 Blood lactic acid measurement (moles/volume) 1.25 mmol/L 0.50-2.00 Bacterial blood culture - 09/28/19 22:30 Bacterial blood culture NG NR Influenza virus A and B antigen detectio n - 09/28/19 22:40 FLU RESULT NEGATIVE FOR INFLUENZA A AND B ANTIGENS BY IA NR Bacterial blood culture - 09/28/19 23:10 Bacterial blood culture NG [facility] Complete urinalysis with reflex to cultu re - 09/28/19 23:40 Urine color determination YELLOW NRG Urine clarity determination CLEAR NR G Urine pH measurement by test strip 5.5 5-9 Specific gravity of urine by test strip 1.010 1.016-1.022 Urine protein assay by test strip, semi-quantitative NEGATIVE NEGATIVE Urine glucose detection by automated test strip NE GATIVE NEGATIVE Erythrocytes detection in urine sediment by light micr oscopy TRACE NEGATIVE Urine ketones detection by automated test strip NE GATIVE NEGATIVE Urine nitrite detection by test strip NEGATIVE NEGATIVE Urine total bilirubin detection by test strip NEGA TIVE NEGATIVE Urine urobilinogen measurement by automated test strip (mass/volume) 0.2 mg/dL < = 1.0 Urine leukocyte esterase detection by dipstick NEG ATIVE NEGATIVE Automated urine sediment erythrocyte cou nt by microscopy (number/high power field) NONE NRG Automated urine sediment leukocyte count by microscopy (number/high power field) NONE NRG Bacteria detection in urine sediment by light microsco py NEGATIVE NRG Squamous epithelial cells detection in u rine sediment by light microscopy 2-5 NRG Crystals detection in urine sediment by light microsco py NONE NRG Casts detection in urine sediment by light microscopy NONE NRG Mucus detection in urine sediment by light microscopy NONE NRG Complete urinalysis with reflex to culture NO NRG Encounters ACCT No. Visit Date/Time Discharge Status Pt. Type Provider Facility Loc./Unit Complaint [id number] 09/28/2019 21:59:00 020 02:15:00 DIS Emergency JULISA CORDOVA, WHITLEY Kirkpatrick [facility] ER FS COPD COMPLICATIONS [id number] 07/29/2019 14:21:00 019 17:24:00 DIS Emergency JHOAN CORDOVA, JAIRO Summers [facility] ER FS SOA,ANXIETY [id number] 10/29/2018 19:19:00 019 22:35:00 DIS Emergency JENNY BENJAMIN MD [facility] ER FS SOB [id number] 03/27/2018 15:10:00 018 15:10:00 CAN Preadmit KHUSHI OSBORNE MD [facility] ONC
[2019-12-26 23:59] LABS: BASOPHILS # (AUTO) 0.1 10^3/uL (0.0-0.1); BASOPHILS % (AUTO) 0 % (0-10); EOSINOPHILS # (AUTO) 0.2 10^3/uL (0.0-0.3); EOSINOPHILS % (AUTO) 1 % (0-10); HEMATOCRIT 39 % (35-52); HEMOGLOBIN 12.7 G/DL (11.5-16.0); LYMPHOCYTES % (AUTO) 11 % (12-44); MEAN CORPUSCULAR HEMOGLOBIN 27 PG (25-34); MEAN CORPUSCULAR HGB CONC 33 G/DL (32-36); MEAN CORPUSCULAR VOLUME 82 FL (80-99); MEAN PLATELET VOLUME 8.1 FL (7.4-10.4); MONOCYTES # (AUTO) 1.6 X 10^3 (0.0-1.0); MONOCYTES % (AUTO) 8 % (0-12); NEUTROPHILS # (AUTO) 15.1 X 10^3 (1.8-7.8); NEUTROPHILS % (AUTO) 78 % (42-75); PLATELET COUNT 471 10^3/uL (130-400); WHITE BLOOD COUNT 19.3 10^3/uL (4.3-11.0)
[2019-12-27] MEDS ORDERED: RT-ALBUTEROL/IPRATROPIUM 3 ML (DUONEB) VIAL INH ONE
--- NOTE | 2019-12-27 00:04 | ED General ---
General Chief Complaint: Respiratory Problems Stated Complaint: SOB Nursing Triage Note: Pt has been getting more short of breath over the past couple of days. Hx of CHF and COPD Nursing Sepsis Screen: No Definite Risk Source of Information: Patient Exam Limitations: No Limitations History of Present Illness Date Seen by Provider: December 26, 2019 Time Seen by Provider: 11:48 Initial Comments 69-year-old female presents to the emergency room with acute onset of shortness of breath and cough. Patient has felt sick for the past 2 days and has pro gressively worsened. Patient states that she has chronic obstructive lung disease with a re-exacerbation. In September 28, 2019 she had a leukocytosis of 20.4 with a hyponatremia and a troponin of 11. Patient currently presents with cough shortness of breath but no significant chest pain. She states that she has a re-exacerbation of her COPD. Patient gave informed consent for diagnostic and therapeutic services. Laboratory evaluation chest x-ray EKG in addition to a DuoNeb nebulizer treatment blood cultures have been started. Patient has been taking cefdinir by mouth twice a day but has progressively gotten worse while on antibiotics. Despite her most recent transferred to the [facility] for acute exacerbation of COPD patient continues to smoke a daily basis. Patient states that she was not aware that she had an elevated white count of 20,000. She states her mother had chronic lymphocytic leukemia. After her second DuoNeb treatment patient states she feels a little bit better but continues to cough and sputter. Chest x-ray reveals congestive heart failure picture with possible left pulmonary effusion and patient is hyponatremic. Timing/Duration: 1-2 Days Severity: Moderate Modifying Factors: improves with Movement, improves with Rest Associated Systoms: Cough, Loss of Appetite, Malaise, Nausea/Vomiting, Shortness of Air, Weakness Allergies and Home Medications Allergies Coded Allergies: bupropion (Verified Allergy, Unknown, 07/29/19) Home Medications Cefdinir 300 Mg Capsule, 300 MG PO BID Prescribed by: JAIRO STAPLES on 07/29/191625 Prednisone 20 Mg Tab, 40 MG PO DAILY Prescribed by: JAIRO STAPLES on 07/29/191625 Patient Home Medication List Home Medication List Reviewed: Yes Review of Systems Review of Systems Constitutional: see HPI, malaise, weakness, other (progressive cough despite antibiotics and medications for COPD) EENTM: see HPI, hoarseness, throat pain Respiratory: see HPI, cough, dyspnea on exertion, short of breath, wheezing Cardiovascular: chest pain (appears to be diffuse lateral chest not anterior chest wall or precordial) Gastrointestinal: abdominal pain (epigastric and near the diaphragm), nausea Genitourinary: decreased output Musculoskeletal: back pain, muscle weakness (feeling weaker and weaker over the past 2 days) Skin: no symptoms reported Psychiatric/Neurological: Anxiety Hematologic/Lymphatic: No Symptoms Reported Immunological/Allergic: no symptoms reported Past Frgcago-Clojko-Wndgqe Hx Past Med/Social Hx: Reviewed Nursing Past Med/Soc Hx Patient Social History Alcohol Use: Denies Use Recreational Drug Use: No Smoking Status: Current Everyday Smoker Type Used: Cigarettes 2nd Hand Smoke Exposure: Yes Recent Foreign Travel: No Contact w/Someone Who Travel: No Recent Infectious Disease Expo: No Recent Hopitalizations: No Physical Abuse: No Sexual Abuse: No Seasonal Allergies Seasonal Allergies: No Past Medical History Surgeries: Yes ("intestinal bypass and 2 c-sections") Gallbladder Respiratory: Yes Pneumonia, COPD Currently Using CPAP: No Currently Using BIPAP: No Cardiac: Yes (CHF) Chronic Edema/Swelling, Hypertension Neurological: No Genitourinary: No Gastrointestinal: No Musculoskeletal: No Endocrine: No HEENT: No Cancer: No Psychosocial: No Integumentary: No Blood Disorders: No Family Medical History Reviewed Nursing Family Hx Physical Exam-Suspected Sepsis Physical Exam Vital Signs Vital Signs - First Documented 12/26/19 23:45 Temp 36.6 Pulse 91 Resp 20 B/P (MAP) 120/79 (93) Pulse Ox 98 O2 Delivery Nasal Cannula O2 Flow Rate 3.00 Capillary Refill : Less Than 3 Seconds Blood Pressure Mean: 93 Height, Weight, BMI Height: 5'6.00" Weight: 224lbs. oz. [id number]; 37.00 BMI Method:Stated General Appearance: Moderate Distress, Obese (morbid obesity) Eyes: Bilateral Eye Normal Inspection, Bilateral Eye PERRL, Bilateral Eye EOMI HEENT: PERRL/EOMI, Normal ENT Inspection, Pharynx Normal Neck: Other (poor oral hygiene and missing teeth) Respiratory: Crackles, Rales, Respiratory Distress, Rhonci, Wheezing Cardiovascular: Regular Rate, Rhythm, No Gallop, No JVD, No Murmur, Gallop/S4, JVD, Other (EKG shows atrial premature complexes with a prolonged NV interval and a left anterior hemiblock) Gastrointestinal: Normal Bowel Sounds, No Pulsatile Mass, Non Tender, Soft, Other (patient appears to be tender at the insertion of the diaphragm) Back: Normal Inspection, No CVA Tenderness, No Vertebral Tenderness Extremity: Normal Capillary Refill, Normal Inspection, Normal Range of Motion, Non Tender, No Calf Tenderness Neurologic/Psychiatric: Alert, Oriented x3, No Motor/Sensory Deficits, Normal Mood/Affect, campaign associate II-XII Norm as Tested Reflexes: 1+ Bicep (R), 1+ Bicep (L) Skin: normal color, warm/dry Lymphatic: No Adenopathy Focused Exam Lactate Level 12/26/19 23:45: Lactic Acid Level 1.23 Lactic Acid Level Laboratory Tests Test 12/26/19 23:45 Lactic Acid Level 1.23 MMOL/L (0.50-2.00) Progress/Results/Core Measures Suspected Sepsis Recent Fever Within 48 Hours: No Infection Criteria Present: Suspected New Infection New/Unexplained Altered Menta: No Sepsis Screen: No Definite Risk SIRS Temperature: Pulse: 91 Respiratory Rate: 20 Laboratory Tests 12/26/19 23:45: White Blood Count 19.3H Blood Pressure 120 /79 Mean: 93 12/26/19 23:45: Lactic Acid Level 1.23 Laboratory Tests 12/26/19 23:45: Creatinine 0.68, Platelet Count 471H, Total Bilirubin 0.3 Results/Orders Lab Results Laboratory Tests Test 12/26/19 23:45 Range/Units White Blood Count 19.3 H 4.3-11.0 10^3/uL Red Blood Count 4.71 4.35-5.85 10^6/uL Hemoglobin 12.7 11.5-16.0 G/DL Hematocrit 39 35-52 % Mean Corpuscular Volume 82 80-99 FL Mean Corpuscular Hemoglobin 27 25-34 PG Mean Corpuscular Hemoglobin Concent 33 32-36 G/DL Red Cell Distribution Width 14.0 10.0-14.5 % Platelet Count 471 H 130-400 10^3/uL Mean Platelet Volume 8.1 7.4-10.4 FL Neutrophils (%) (Auto) 78 H 42-75 % Lymphocytes (%) (Auto) 11 L 12-44 % Monocytes (%) (Auto) 8 0-12 % Eosinophils (%) (Auto) 1 0-10 % Basophils (%) (Auto) 0 0-10 % Neutrophils # (Auto) 15.1 H 1.8-7.8 X 10^3 Lymphocytes # (Auto) 2.0 1.0-4.0 X 10^3 Monocytes # (Auto) 1.6 H 0.0-1.0 X 10^3 Eosinophils # (Auto) 0.2 0.0-0.3 10^3/uL Basophils # (Auto) 0.1 0.0-0.1 10^3/uL Neutrophils % (Manual) 81 % Lymphocytes % (Manual) 9 % Monocytes % (Manual) 6 % Eosinophils % (Manual) 2 % Reactive Lymphocytes 2 % Platelet Estimate INCREASED Poikilocytosis SLIGHT Sodium Level 123 *L 135-145 MMOL/L Potassium Level 4.3 3.6-5.0 MMOL/L Chloride Level 85 L 98-107 MMOL/L Carbon Dioxide Level 25 21-32 MMOL/L Anion Gap 13 5-14 MMOL/L Blood Urea Nitrogen 12 7-18 MG/DL Creatinine 0.68 0.60-1.30 MG/DL Estimat Glomerular Filtration Rate > 60 BUN/Creatinine Ratio 18 Glucose Level 114 H 70-105 MG/DL Lactic Acid Level 1.23 0.50-2.00 MMOL/L Calcium Level 9.7 8.5-10.1 MG/DL Corrected Calcium 10.1 8.5-10.1 MG/DL Total Bilirubin 0.3 0.1-1.0 MG/DL Aspartate Amino Transf (AST/SGOT) 14 5-34 U/L Alanine Aminotransferase (ALT/SGPT) 11 0-55 U/L Alkaline Phosphatase 87 40-136 U/L Troponin I < 0.30 <0.30 NG/ML Pro-B-Type Natriuretic Peptide 85.1 H <75.0 PG/ML Total Protein 6.2 L 6.4-8.2 GM/DL Albumin 3.5 3.2-4.5 GM/DL Micro Results Microbiology 12/27/19 Influenza Types A,B Antigen (CHON) - Final, Complete My Orders Orders - SRINIVAS FLANAGAN DO Cbc And Manual Diff (12/26/19 23:54) Comprehensive Metabolic Panel (12/26/19 23:54) Lactic Acid Analyzer (12/26/19 23:54) Urinalysis (12/26/19 23:54) Troponin I Fs (12/26/19 23:55) Ekg Tracing (12/26/19 23:55) Probnp Fs (12/26/19 23:55) Albuterol/Ipra Inhalation Soln (Duoneb I (12/27/19 00:00) Svn Small Volume Nebulizer (12/26/19 23:57) Chest 1 View Ap/Pa Only (12/27/19 00:05) Blood Culture (12/27/19 00:08) Influenza A And B Antigens (12/27/19 00:16) Azithromycin Injection (Zithromax Inject (12/27/19 00:45) Ns Iv 500 Ml (Sodium Chloride 0.9%) (12/27/19 00:45) Methylprednisolone Sod Succ (Solu-Medrol (12/27/19 01:00) Medications Given in ED Current Medications Medications Dose Ordered Sig/Salvador Route Start Time Stop Time Status Last Admin Dose Admin Albuterol/ Ipratropium 3 ml ONCE ONCE INH 12/27/19 00:00 12/27/19 00:01 DC 12/27/19 00:10 3 ML Azithromycin 500 mg/Sodium Chloride 250 ml @ 250 mls/hr ONCE ONCE IV 12/27/19 00:45 12/27/19 01:44 12/27/19 00:43 250 MLS/HR Sodium Chloride 500 ml @ 30 mls/hr [id number] ONCE IV 12/27/19 00:45 12/27/19 17:24 12/27/19 00:43 30 MLS/HR Vital Signs/I&O 12/26/19 23:45 Temp 36.6 Pulse 91 Resp 20 B/P (MAP) 120/79 (93) Pulse Ox 98 O2 Delivery Nasal Cannula O2 Flow Rate 3.00 Capillary Refill : Less Than 3 Seconds Blood Pressure Mean: 93 Departure Impression Primary Impression: Acute exacerbation of chronic obstructive pulmonary disease (COPD) Additional Impressions: Pneumonia Hyponatremia Leukocytosis (leucocytosis) Disposition: XF SHT-TRM HOSP Condition: Improved Transfer Transfer Reason: Patient preference (patient wanted to go to the [facility] as she had 2 weeks earlier) Time Spoke to Accepting Phy: 00:[address] Della Velazquez has accepted the patient for diagnosis of acute exacerbation of COPD without adequate response to the ambulatory setting. Patient also has pneumonia dehydration and hyponatremia and leukocytosis. A she is aware of the risks of transfer and also the benefits with inpatient treatment continued IV therapy and monitoring. Please note this dictation was made with Pathflow software. Efforts have been made to correct any errors. Some errors or able to penetrate the review process. If there are any questions regarding this dictation please contact Srinivas Flanagan DO [phone] Transfer Time: 01:00 Transfer Facility: [facility] Method of Transfer: EMS Departure-Patient Inst. Decision time for Depature: 01:01 Referrals: BROWN WAGNER DO (PCP/Family) Primary Care Physician Patient Instructions: Pneumonia, Adult (DC), Chronic Bronchitis (DC), Exacerbation of COPD (DC) Copy Copies To 1: BROWN WAGNER ANTHONY H DO December 27, 2019 00:04
[2019-12-27 00:07] LABS: EOSINOPHILS % (MANUAL) 2 %; LYMPHOCYTES % (MANUAL) 9 %; MONOCYTES % (MANUAL) 6 %; NEUTROPHILS % (MANUAL) 81 %; POIKILOCYTOSIS SLIGHT; REACTIVE LYMPHOCYTES 2 %
[2019-12-27 00:08] LABS: PLATELET ESTIMATE INCREASED
[2019-12-27 00:14] LABS: ALANINE AMINOTRANSFERASE 11 U/L (0-55); ALKALINE PHOSPHATASE 87 U/L (40-136); BILIRUBIN,TOTAL 0.3 MG/DL (0.1-1.0); BUN/CREATININE RATIO 18; CALCIUM 9.7 MG/DL (8.5-10.1); CARBON DIOXIDE 25 MMOL/L (21-32); CHLORIDE 85 MMOL/L (98-107); CREATININE SERUM 0.68 MG/DL (0.60-1.30); GFR ESTIMATED > 60; GLUCOSE 114 MG/DL (70-105); POTASSIUM 4.3 MMOL/L (3.6-5.0)
[2019-12-27 00:15] LABS: ALBUMIN 3.5 GM/DL (3.2-4.5); TOTAL PROTEIN 6.2 GM/DL (6.4-8.2)
[2019-12-27 00:16] LABS: SODIUM 123 MMOL/L (135-145)
[2019-12-27] MEDS ORDERED: NS IV 500 ML 500 ML IV ONE (00:45)
[2019-12-27] MEDS ORDERED: AZITHROMYCIN INJECTION 500 MG in NS (IVPB) 250 ML IV ONE (00:45)
[2019-12-27] MEDS ORDERED: methylPREDNISolone 125 MG (Solu-MEDROL) VIAL IVP ONE (01:00)
[2019-12-27 01:48] VITALS: BP 119/73
--- NOTE | 2019-12-27 06:40 | Diagnostic Imaging Report ---
EXAMINATION: Chest 1 view HISTORY: Shortness of breath. History of CHF. COMPARISON: Chest radiograph on 09/28/2019 FINDINGS: A small left pleural effusion is present with left basilar opacities. Likely small right pleural effusion is seen. Cardiomegaly is again noted. There is mild prominence of the central pulmonary vasculature. No evidence of pneumothorax. No acute osseous abnormalities. IMPRESSION: 1. Cardiomegaly with central pulmonary vascular congestion. 2. Bilateral small pleural effusions with patchy opacities in the left lung base. This appearance is somewhat similar to the prior exam. Dictated by: Dictated on workstation # [id number]
== END 2019-12-27 02:05 | disposition short-term general hospital (02) ==
LOC: EDUNIT# 23:25 → ER FS 23:31
DX: J44.1 Chronic obstructive pulmonary disease with (acute) exacerbation (principal); J18.9 Pneumonia, unspecified organism; E87.1 Hypo-osmolality and hyponatremia; D72.829 Elevated white blood cell count, unspecified; I11.0 Hypertensive heart disease with heart failure; I50.9 Heart failure, unspecified; F17.210 Nicotine dependence, cigarettes, uncomplicated; Z88.8 Allergy status to other drugs, medicaments and biological substances; Z79.52 Long term (current) use of systemic steroids
CPT/HCPCS: 36415; 71045; 80053; 83605; 83880; 84484; 85007; 85027; 87040; 87804; 93005

== ENCOUNTER 2020-12-25 00:01 | Inpatient (IN) | payer MEDICARE, MEDICAID ==
[2020-12-25] VITALS (7 sets, daily range): BP systolic 104–123; BP diastolic 57–82
[~2020-12-25] VITALS: Ht 167.6 cm; Wt 101.6 kg
[2020-12-25] MEDS ORDERED: RT-ALBUTEROL/IPRATROPIUM 3 ML (DUONEB) VIAL INH PRN (03:15)
[2020-12-25] MEDS ORDERED: ACETAMINOPHEN 500 MG TAB (TYLENOL) PO PRN (03:30)
[2020-12-25] MEDS ORDERED: ROFL500T PO (04:07)
[2020-12-25] MEDS: RT-ALBUTEROL/IPRATROPIUM 3 ML (DUONEB) VIAL INH SCH ×4 (06:26→21:19)
[2020-12-25] MEDS ORDERED: polyethylene glycoL POWDER 17 GM (MIRALAX) PACK PO PRN (06:30)
[2020-12-25] MEDS ORDERED: BISACODYL 10 MG SUPP (DULCOLAX) PR PRN (06:30)
[2020-12-25 07:29] LABS: BASOPHILS % (AUTO) 0 % (0-10); EOSINOPHILS % (AUTO) 0 % (0-10); HEMATOCRIT 43 % (35-52); HEMOGLOBIN 13.5 g/dL (11.5-16.0); LYMPHOCYTES # (AUTO) 1.3 10^3/uL (1.0-4.0); LYMPHOCYTES % (AUTO) 6 % (12-44); MEAN CORPUSCULAR HEMOGLOBIN 25 pg (25-34); MEAN CORPUSCULAR HGB CONC 32 g/dL (32-36); MEAN CORPUSCULAR VOLUME 80 fL (80-99); MEAN PLATELET VOLUME 8.7 fL (9.0-12.2); MONOCYTES # (AUTO) 1.1 10^3/uL (0.0-1.0); MONOCYTES % (AUTO) 5 % (0-12); NEUTROPHILS # (AUTO) 21.7 10^3/uL (1.8-7.8); NEUTROPHILS % (AUTO) 89 % (42-75); PLATELET COUNT 382 10^3/uL (130-400); WHITE BLOOD COUNT 24.3 10^3/uL (4.3-11.0)
[2020-12-25 07:41] LABS: CHLORIDE 89 MMOL/L (98-107); POTASSIUM 3.1 MMOL/L (3.6-5.0); SODIUM 136 MMOL/L (135-145)
[2020-12-25 07:42] LABS: CALCIUM 9.8 MG/DL (8.5-10.1)
[2020-12-25 07:43] LABS: GLUCOSE 138 MG/DL (70-105)
[2020-12-25 07:44] LABS: CARBON DIOXIDE 37 MMOL/L (21-32)
[2020-12-25 07:47] LABS: CREATININE SERUM 0.69 MG/DL (0.60-1.30); GFR ESTIMATED > 60
[2020-12-25 07:48] LABS: BUN/CREATININE RATIO 19
[2020-12-25 07:55] LABS: BAND NEUTROPHILS 0 %; BASOPHILS % (MANUAL) 0 %; EOSINOPHILS % (MANUAL) 0 %; LYMPHOCYTES % (MANUAL) 9 %; MONOCYTES % (MANUAL) 4 %; NEUTROPHILS % (MANUAL) 87 %; RBC MORPH NORMAL
[2020-12-25] MEDS ORDERED: KCL 20 MEQ TAB (K-DUR) PO NR ×2 (11:00→13:00)
[2020-12-25] MEDS ORDERED: LORATADINE (CLARITIN) 10 MG TAB PO NR (11:15)
--- NOTE | 2020-12-25 11:40 | History & Physical-Hospitalist ---
History of Present Illness HPI/Chief Complaint Pt is a 70yoCF with a PMH of COPD, HTN, PE, and fibromyalgia on chronic opoids who presented to outside ER due to SOB. 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 Despite this she continued to worsen so she called EMS who gave her Solu Medrol, Lasix, and Ativan. She was found to be hypoxic on room air at 87%. She was found to have a pneumonia and admitted for IV abx. To me today her only complaint is that she is in pain. She takes oxycodone for her fibromyalgia and states she can take no other medications that oxycodone IR because of an abdominal surgery she had years ago. She otherwise has no complaint for me regarding her respiratory status unless prompted. When prompted she is complaining of cough and sputum productive. Denies fevers. She has not been vaccinated against COVID. Source: patient Date Seen 12/25/20 Time Seen by a Provider: 11:39 Attending Physician Tomasa Hernandez MD PCP [place] Espinoza DO Referring Physician Date of Admission December 25, 2020 at 02:31 Home Medications & Allergies Home Medications Reviewed patient Home Medication Reconciliation performed by pharmacy medication reconciliations oil field technician and/or nursing. Patients Allergies have been reviewed. Allergies Allergies Coded Allergies bupropion (Verified Allergy, Unknown, 07/29/19) Past Medical/Social/Family Hx Patient Social History Employed/Student: retired Tobacco Use?: Yes Smoking Status: Current Everyday Smoker Use of E-Cig and/or Vaping dev: No Substance use?: No Alcohol Use?: No Pt stated abuse/neglect: No Immunizations Up To Date Influenza Vaccine Up-to-Date: Yes; Up-to-Date First/Initial COVID19 Vaccinat: n/a Current Status Communicates: Verbally Primary Language: Luxembourgish Preferred Spoken Language: Luxembourgish Is interpretation needed?: No Implanted or Applied Medical D: None Past Medical History HTN, Fibromylagia, Chornic pain, COPD, CHF, PAD Surgery: Gastric bypass, cholecystectomy, x2, Family Medical History Family Hx: Mother- leukemia Father- HTN Review of Systems Constitutional: No chills, No fever EENTM: no symptoms reported Respiratory: cough; No dyspnea on exertion; phlegm, short of breath Cardiovascular: No chest pain; edema; No palpitations Gastrointestinal: No abdominal pain, No nausea, No vomiting Genitourinary: no symptoms reported Musculoskeletal: joint pain, muscle pain Skin: no symptoms reported Psychiatric/Neurological: No Symptoms Reported Physical Exam Physical Exam Vital Signs Vital Signs - First Documented 12/25/20 02:54 Temp 36.3 Pulse 102 Resp 20 B/P (MAP) 123/82 (96) Pulse Ox 93 O2 Delivery Nasal Cannula O2 Flow Rate 3.00 Capillary Refill : Height, Weight, BMI Height: 5'6.00" Weight: 224lbs. oz. 101.115450ky; 38.97 BMI Method:Stated General Appearance: No Apparent Distress, Chronically ill, Obese HEENT: PERRL/EOMI, Moist Mucous Membranes; No Scleral Icterus (L), No Scleral Icterus (R) Neck: Normal Inspection, Supple Respiratory: No Accessory Muscle Use, Crackles, Other (on 3lpm) Cardiovascular: Regular Rate, Rhythm, No Murmur Gastrointestinal: Normal Bowel Sounds, Non Tender, Soft Extremity: No Calf Tenderness, Pedal Edema, Swelling Neurologic/Psychiatric: Alert, Oriented x3, Normal Mood/Affect Skin: Normal Color, Warm/Dry Results Results/Procedures Labs Laboratory Tests 12/25/20 07:22 Patient resulted labs reviewed. Imaging: Reviewed Imaging Report (from outside facility ER read as right sided pneumonia) Assessment/Plan Admission Diagnosis Acute on Chronic Respiratory Failure Admission Status: Inpatient Order (span 2 midnights) Reason for Inpatient Admission: see below Assessment and Plan Acute on Chronic Respiratory Failure Sepsis from CAP COPD exacerbation with lower respiratory tract infection history of CHF Continue on abx Start Prednisone MAT protocol Wean oxygen as able Will check BNP and consider Lasix as well Fibromyalgia Chronic opoid use Resume home oxycodone (our pharmacy stocks 5mg tabs and patient declined two 5mg tabs and instead would like one 10mg tab, RN to call and see if available) Advised her I do not have licensing for [place] PT/OT DVT ppx: Already on Xarelto Diagnosis/Problems Diagnosis/Problems (1) COPD (chronic obstructive pulmonary disease) (2) Essential (primary) hypertension (3) Obesity (4) Sepsis (5) Tobacco abuse (6) Fibromyalgia (7) Chronic, continuous use of opioids (8) CAP (community acquired pneumonia) (9) PNA (pneumonia) TOMASA HERNANDEZ MD December 25, 2020 11:40
[2020-12-25] MEDS: RIVAROXABAN 20 MG TABLET (XARELTO) PO SCH (16:08)
[2020-12-25] MEDS: MONTELUKAST 10 MG (SINGULAIR) TAB PO SCH (20:10)
[2020-12-25] MEDS: cefTRIAXone FOR IV USE 1,000 MG in WATER (STERILE) FOR INJECTION 10 ML IV SCH (20:10)
[2020-12-25] MEDS: RT-BUDESONIDE NEBS 0.5 MG/2ML (PULMICORT) AMP INH SCH (21:19)
[2020-12-26] MEDS: RT-ALBUTEROL/IPRATROPIUM 3 ML (DUONEB) VIAL INH SCH ×6 (02:30→22:12)
[2020-12-26 03:31] VITALS: BP 110/58
[2020-12-26 05:20] LABS: HEMATOCRIT 40 % (35-52); HEMOGLOBIN 12.3 g/dL (11.5-16.0); MEAN CORPUSCULAR HEMOGLOBIN 25 pg (25-34); MEAN CORPUSCULAR HGB CONC 31 g/dL (32-36); MEAN CORPUSCULAR VOLUME 82 fL (80-99); MEAN PLATELET VOLUME 9.3 fL (9.0-12.2); PLATELET COUNT 367 10^3/uL (130-400); WHITE BLOOD COUNT 12.1 10^3/uL (4.3-11.0)
[2020-12-26 05:36] LABS: BUN/CREATININE RATIO 25; CALCIUM 9.1 MG/DL (8.5-10.1); CARBON DIOXIDE 35 MMOL/L (21-32); CHLORIDE 94 MMOL/L (98-107); CREATININE SERUM 0.65 MG/DL (0.60-1.30); GFR ESTIMATED > 60; GLUCOSE 93 MG/DL (70-105); POTASSIUM 3.1 MMOL/L (3.6-5.0); SODIUM 137 MMOL/L (135-145)
[2020-12-26] MEDS: predniSONE 20 MG TAB PO SCH (06:20)
[2020-12-26] MEDS: RT-BUDESONIDE NEBS 0.5 MG/2ML (PULMICORT) AMP INH SCH ×2 (06:50→18:48)
[2020-12-26 07:45] VITALS: BP 124/78
[2020-12-26] MEDS: LORATADINE (CLARITIN) 10 MG TAB PO SCH (09:28)
[2020-12-26] MEDS: ROFLUMILAST 500 MCG TAB (DALIRESP) PO SCH (09:29)
--- NOTE | 2020-12-26 10:31 | Physical Therapy Progress Note ---
Therapy Progress Note Patient adamantly declined PT stating, "I don't walk and I don't want to do anything. I just ordered my breakfast and want to be left alone." PT attempted to encourage patient to perform up to recliner for breakfast, however, patient was adamant not to participate with therapy. Will attempt in a.m. 1 visit ref ([id number]) ALEJANDRA SIBLEY PT December 26, 2020 10:31
[2020-12-26] MEDS ORDERED: RT-ALBUINH INH (11:21)
[2020-12-26] MEDS ORDERED: BUPR900F3 PO (11:21)
[2020-12-26] MEDS ORDERED: MONT10TA32 PO (11:21)
[2020-12-26] MEDS ORDERED: IPRA3AMP31 INH (11:21)
[2020-12-26] MEDS ORDERED: BUDE10.7 INH (11:21)
[2020-12-26] MEDS ORDERED: LORA10TA7 PO (11:21)
[2020-12-26] MEDS ORDERED: LISI1TAB26 PO (11:21)
[2020-12-26] MEDS ORDERED: OXYC10TA7 PO (11:21)
[2020-12-26] MEDS ORDERED: RIVA20TA PO (11:21)
[2020-12-26] MEDS ORDERED: ACET325T38 PO (11:21)
[2020-12-26] MEDS ORDERED: BUDE1AMP2 INH (11:21)
[2020-12-26] MEDS ORDERED: PRED5TAB PO (11:21)
[2020-12-26 11:40] VITALS: BP 125/76
--- NOTE | 2020-12-26 11:45 | Occ Therapy Progress Note ---
Therapy Progress Note OT orders received and chart reviewed. OT visited with pt who adamantly declined therapy at this time. Pt states "I'm sick", "I don't feel good", and indicates she is nauseous. OT educated pt on purpose and benefits of OT but she continues to decline. OT will attempt again tomorrow. 1, visit RIGO MENESES OT December 26, 2020 11:45
--- NOTE | 2020-12-26 14:27 | Progress Note - Hospitalist ---
Subjective HPI/CC On Admission Date Seen by Provider: December 26, 2020 Time Seen by Provider: 10:20 Pt is a 70yoCF with a PMH of COPD, HTN, PE, and fibromyalgia on chronic opoids who presented to outside ER due to SOB. She states it started a couple of days ago and saw Dr Espinoza's BANDER OPERATOR and was prescribed an inhaler and medrol dose saman. Despite this she continued to worsen so she called EMS who gave her Solu Medrol, Lasix, and Ativan. She was found to be hypoxic on room air at 87%. She was found to have a pneumonia and admitted for IV abx. To me today her only complaint is that she is in pain. She takes oxycodone for her fibromyalgia and states she can take no other medications that oxycodone IR because of an abdominal surgery she had years ago. She otherwise has no complaint for me regarding her respiratory status unless prompted. When prompted she is complaining of cough and sputum productive. Denies fevers. She has not been vaccinated against COVID. Subjective/Events-last exam She reports pain all over her body from her fibromyalgia. She reports shortness of breath. She denies fevers. She says she quit smoking a week ago. She was agitated and confrontational. Objective Exam Vital Signs Vital Signs Date Time Temp Pulse Resp B/P (MAP) Pulse Ox O2 Delivery O2 Flow Rate FiO2 12/26/20 11:40 36.6 91 38 125/76 (92) 91 Nasal Cannula 2.00 Capillary Refill : General Appearance: No Apparent Distress, Obese HEENT: PERRL/EOMI, Pharynx Normal Neck: Normal Inspection, Supple Respiratory: Lungs Clear, Normal Breath Sounds, No Respiratory Distress Cardiovascular: Regular Rate, Rhythm, No Murmur Gastrointestinal: Normal Bowel Sounds, Non Tender, Soft Extremity: Non Tender, Swelling, Other (venous stasis dermatitis) Neurologic/Psychiatric: Alert, Oriented x3, Other (agitated, irritable, uncooperative) Skin: Normal Color, Warm/Dry Results/Procedures Lab Laboratory Tests 12/26/20 04:59 Patient resulted labs reviewed. Imaging: Reviewed Imaging Report (from outside facility ER read as right sided pneumonia) Assessment/Plan Assessment and Plan Assess & Plan/Chief Complaint Acute on chronic respiratory failure with hypoxia Sepsis due to pneumonia COPD exacerbation with lower respiratory tract infection Continue antibiotics Continue Prednisone MAT protocol Wean oxygen as able Fibromyalgia Chronic opoid use Continue home oxycodone PT/OT Obesity Clinically significant, no acute management needs DVT ppx: Already on Xarelto Diagnosis/Problems Diagnosis/Problems (1) PNA (pneumonia) Status: Acute (2) COPD (chronic obstructive pulmonary disease) Status: Acute Qualifiers: COPD type: COPD with acute lower respiratory infection Qualified Codes: J44.0 - Chronic obstructive pulmonary disease with (acute) lower respiratory infection (3) Fibromyalgia Status: Acute (4) Chronic, continuous use of opioids Status: Chronic (5) Obesity Status: Chronic DAYNA SILVESTRE MD December 26, 2020 14:27
[2020-12-26 15:50] VITALS: BP 124/84
[2020-12-26] MEDS: RIVAROXABAN 20 MG TABLET (XARELTO) PO SCH (17:10)
[2020-12-26 19:36] VITALS: BP 121/63
[2020-12-26] MEDS: MONTELUKAST 10 MG (SINGULAIR) TAB PO SCH (19:49)
[2020-12-26] MEDS: LORazepam INJ 2 MG/ML (ATIVAN) VIAL IVP PRN (19:49)
[2020-12-26] MEDS: ONDANSETRON 4 MG/2 ML (SDV) Z0FRAN IV PRN (21:18)
[2020-12-26] MEDS: AZITHROMYCIN 250 MG TAB (ZITHROMAX) PO SCH (21:18)
[2020-12-26] MEDS: cefTRIAXone FOR IV USE 1,000 MG in WATER (STERILE) FOR INJECTION 10 ML IV SCH (21:18)
[2020-12-27] VITALS: BP 155/80
[2020-12-27] MEDS: MELATONIN 3 MG TABLET PO PRN ×2 (00:43→21:25)
[2020-12-27] MEDS: RT-ALBUTEROL/IPRATROPIUM 3 ML (DUONEB) VIAL INH SCH ×6 (02:18→21:50)
[2020-12-27] MEDS: ONDANSETRON 4 MG/2 ML (SDV) Z0FRAN IV PRN ×2 (03:30→08:41)
[2020-12-27] MEDS: predniSONE 20 MG TAB PO SCH (06:17)
[2020-12-27 06:19] VITALS: BP 154/86
[2020-12-27] MEDS: RT-BUDESONIDE NEBS 0.5 MG/2ML (PULMICORT) AMP INH SCH ×2 (06:30→18:41)
[2020-12-27 08:00] VITALS: BP 145/84
[2020-12-27 08:12] LABS: BASOPHILS % (AUTO) 0 % (0-10); EOSINOPHILS % (AUTO) 0 % (0-10); HEMATOCRIT 42 % (35-52); HEMOGLOBIN 12.9 g/dL (11.5-16.0); LYMPHOCYTES # (AUTO) 1.3 10^3/uL (1.0-4.0); LYMPHOCYTES % (AUTO) 8 % (12-44); MEAN CORPUSCULAR HEMOGLOBIN 25 pg (25-34); MEAN CORPUSCULAR HGB CONC 31 g/dL (32-36); MEAN CORPUSCULAR VOLUME 82 fL (80-99); MEAN PLATELET VOLUME 8.9 fL (9.0-12.2); MONOCYTES # (AUTO) 0.9 10^3/uL (0.0-1.0); MONOCYTES % (AUTO) 6 % (0-12); NEUTROPHILS # (AUTO) 13.9 10^3/uL (1.8-7.8); NEUTROPHILS % (AUTO) 85 % (42-75); PLATELET COUNT 412 10^3/uL (130-400); WHITE BLOOD COUNT 16.3 10^3/uL (4.3-11.0)
[2020-12-27 08:23] LABS: BUN/CREATININE RATIO 22; CALCIUM 9.3 MG/DL (8.5-10.1); CARBON DIOXIDE 33 MMOL/L (21-32); CHLORIDE 91 MMOL/L (98-107); CREATININE SERUM 0.64 MG/DL (0.60-1.30); GFR ESTIMATED > 60; GLUCOSE 113 MG/DL (70-105); MAGNESIUM 1.5 MG/DL (1.6-2.4); POTASSIUM 3.6 MMOL/L (3.6-5.0); SODIUM 136 MMOL/L (135-145)
[2020-12-27] MEDS: ROFLUMILAST 500 MCG TAB (DALIRESP) PO SCH (08:36)
[2020-12-27] MEDS: LORATADINE (CLARITIN) 10 MG TAB PO SCH (08:36)
--- NOTE | 2020-12-27 09:38 | Physical Therapy Progress Note ---
Therapy Progress Note Patient adamantly declined PT and became agitated with PT request. Physician notified. December in a.m. 1 ref ([phone]) ALEJANDRA SIBLEY PT December 27, 2020 09:38
--- NOTE | 2020-12-27 09:56 | Occ Therapy Progress Note ---
Therapy Progress Note Pt refused this am, states she does not feel well and just had nausea medication. OT to attempt at next available date. MANJULA STEINER OTR December 27, 2020 09:56
[2020-12-27] MEDS: MAGNESIUM 1 GM/100 ML IVPB 100 ML IV SCH ×2 (10:23→11:04)
[2020-12-27 12:00] VITALS: BP 128/69
--- NOTE | 2020-12-27 14:41 | Physical Therapy Evaluation ---
PT Evaluation-General Medical Diagnosis Admission Date December 25, 2020 at 02:31 Medical Diagnosis: hypoxia/pneumonia/hypokalemia Onset Date: December 25, 2020 Therapy Diagnosis Therapy Diagnosis: debility/weakness Height/Weight Height (Feet): 5 Height (Inches): 6.00 Weight (Pounds): 224 Precautions Precautions/Isolations: Standard Precautions Referral Physician: David Reason for Referral: Evaluation/Treatment Medical History Pertinent Medical History: COPD, Heart Failure, HTN, Smoking Current History EMS secondary to SOA Reviewed History: Yes Social History Home: Single Level Current Living Status: Other Family Entry Into Home: Ramp Prior Prior Level of Function SCALE: Activities may be completed with or without assistive devices. 9-Iyidabpwyw-wzhvisx completes the activity by him/herself with no assistance from a helper. 5-Set-up or Clean-up Assistance-helper sets up or cleans up; patient completes activity. [place] assists only prior to or following the activity. 4-Supervision or Touching Assistance-helper provides verbal cues and/or touching/steadying and/or contact guard assistance as patient completes activity. Assistance may be provided throughout the activity or intermittently. 3-Partial/Moderate Assistance-helper does LESS THAN HALF the effort. [place] lifts, holds or supports trunk or limbs, but provides less than half the effort. 2-Substantial/Maximal Assistance-helper does MORE THAN HALF the effort. [place] lifts or holds trunk or limbs and provides more than half the effort. 9-Cxxysgexb-ekbsfx does ALL the effort. Patient does none of the effort to complete the activity. Or, the assistance of 2 or more helpers is required for the patient to complete the activity. If activity was not attempted, code reason: 7-Patient Refused. 9-Not Applicable-not attempted and the patient did not perform the activity before the current illness, exacerbation or injury. 10-Not Attempted due to Environmental Limitations-(lack of equipment, weather restraints, etc.). 88-Not Attempted due to Medical Conditions or Safety Concerns. Bed Mobility: 9 (sleeps in lift chair at home) Transfers (B,C,W/C): 4 Gait: 4 (~5-10' per patient ) Stairs: 9 Wheelchair Mobility: 2 (family assist and has power chair) Indoor Mobility (Ambulation): Needed Some Help Stairs: Not Applicalbe Prior Devices Use: Manual wheelchair, Motorized scooter, Walker PT Evaluation-Current Subjective Patient states, "All I do is transfer from my chair to the commode and back. If I leave my room I walk 4 step with my walker to a w/c and they push me to where I need to go. I also have a power chair I use outside sometimes but I it has to be certain temperatures because of my COPD." Objective Patient Orientation: Normal For Age Attachments: Oxygen, Varela Catheter ROM/Strength ROM Lower Extremities bilateral LE WFL Strength Lower Extremities 3+/5 grossly bilateral LE Integumentary/Posture Integumentary refer to nursing notes Bladder Incontinence: Varela Cath Posture kyphotic Neuromuscular (Tone, Coordination, Reflexes) grossly intact Sensory Vision: Functional Hearing: Functional Transfers Roll Left to Right (QC): 7 Sit to Lying (QC): 7 Lying to Sitting/Side of Bed(Q: 7 Sit to Stand (QC): 4 Chair/Qbh-qd-Jcboy Xfer(QC): 7 Toilet Transfer (QC): 7 Gait Does the Patient Walk?: Yes Mode of Locomotion: Both Anticipated Mode of Locomotion: Both Gait Assistive Device: FWW Comments/Gait Description does ambulate to restroom but refused to perform Wheelchair Training Does the Pt Use a Wheelchair?: Yes Balance Sitting Static: Normal Sitting Dynamic: Normal Standing Static: Fair Standing Dynamic: Fair Assessment/Needs 70 y.o. female, will be seen short term by skilled PT to ensure safe return to home by demonstrating safe transfers and mobility. Rehab Potential: Fair Post Rehab Potential-Barriers: compliance PT Short Term Goals Short Term Goals Time Frame: December 29, 2020 Roll Left & Right: 4 (SBA) Sit to lyin (SBA) Lying to sitting on side of be: 4 (SBA) Sit to stand: 4 (SBA) Chair/xxo-bh-dqxom transfer: 4 (SBA) Toilet transfer: 4 (SBA) PT Plan Treatment/Plan Treatment Plan: Continue Plan of Care Treatment Plan: Bed Mobility, Education, Functional Activity Diane, Functional Strength, Safety, Therapeutic Exercise, Transfers Treatment Duration: December 29, 2020 Frequency: 3 times per week Estimated Hrs Per Day: .25 hour per day Discharge Recommendations Therapy Discharge Recommendati: Home & Family Time/GCodes Time In: 1401 Time Out: 1411 Total Billed Treatment Time: 10 Total Billed Treatment 1 visit EVModC 10 min ALEJANDRA SIBLEY PT December 27, 2020 14:41
[2020-12-27 16:00] VITALS: BP 130/66
[2020-12-27] MEDS: RIVAROXABAN 20 MG TABLET (XARELTO) PO SCH (17:39)
[2020-12-27 19:42] VITALS: BP 135/73
[2020-12-27] MEDS: AZITHROMYCIN 250 MG TAB (ZITHROMAX) PO SCH (21:26)
[2020-12-27] MEDS: MONTELUKAST 10 MG (SINGULAIR) TAB PO SCH (21:26)
[2020-12-27] MEDS: cefTRIAXone FOR IV USE 1,000 MG in WATER (STERILE) FOR INJECTION 10 ML IV SCH (21:27)
[2020-12-28] VITALS (7 sets, daily range): BP systolic 114–151; BP diastolic 73–96
[2020-12-28] MEDS: RT-ALBUTEROL/IPRATROPIUM 3 ML (DUONEB) VIAL INH SCH ×4 (02:29→15:16)
[2020-12-28 05:33] LABS: BASOPHILS % (AUTO) 0 % (0-10); EOSINOPHILS # (AUTO) 0.1 10^3/uL (0.0-0.3); EOSINOPHILS % (AUTO) 1 % (0-10); HEMATOCRIT 41 % (35-52); HEMOGLOBIN 12.6 g/dL (11.5-16.0); LYMPHOCYTES # (AUTO) 1.4 10^3/uL (1.0-4.0); LYMPHOCYTES % (AUTO) 8 % (12-44); MEAN CORPUSCULAR HEMOGLOBIN 25 pg (25-34); MEAN CORPUSCULAR HGB CONC 31 g/dL (32-36); MEAN CORPUSCULAR VOLUME 81 fL (80-99); MEAN PLATELET VOLUME 8.6 fL (9.0-12.2); MONOCYTES # (AUTO) 1.4 10^3/uL (0.0-1.0); MONOCYTES % (AUTO) 8 % (0-12); NEUTROPHILS # (AUTO) 14.5 10^3/uL (1.8-7.8); NEUTROPHILS % (AUTO) 82 % (42-75); PLATELET COUNT 425 10^3/uL (130-400); WHITE BLOOD COUNT 17.7 10^3/uL (4.3-11.0)
[2020-12-28 05:42] LABS: CHLORIDE 92 MMOL/L (98-107); POTASSIUM 3.3 MMOL/L (3.6-5.0); SODIUM 137 MMOL/L (135-145)
[2020-12-28 05:43] LABS: CALCIUM 9.6 MG/DL (8.5-10.1)
[2020-12-28 05:44] LABS: GLUCOSE 99 MG/DL (70-105)
[2020-12-28 05:45] LABS: CARBON DIOXIDE 36 MMOL/L (21-32)
[2020-12-28 05:48] LABS: CREATININE SERUM 0.59 MG/DL (0.60-1.30); GFR ESTIMATED > 60
[2020-12-28 05:49] LABS: BUN/CREATININE RATIO 24
[2020-12-28 05:50] LABS: MAGNESIUM 1.8 MG/DL (1.6-2.4)
[2020-12-28] MEDS ORDERED: POTASSIUM CL 10MEQ/50ML IVPB 50 ML IV SCH ×2 (06:00→10:00)
[2020-12-28] MEDS ORDERED: MAGNESIUM 1 GM/100 ML IVPB 100 ML IV SCH ×2 (06:00→10:00)
[2020-12-28] MEDS ORDERED: KCL 20 MEQ TAB (K-DUR) PO SCH (06:00)
[2020-12-28] MEDS ORDERED: KCL 20 MEQ TAB (K-DUR) PO ONE ×2 (06:15→09:00)
[2020-12-28] MEDS: predniSONE 20 MG TAB PO SCH (06:32)
[2020-12-28] MEDS: RT-BUDESONIDE NEBS 0.5 MG/2ML (PULMICORT) AMP INH SCH (06:59)
--- NOTE | 2020-12-28 07:38 | Progress Note - Hospitalist ---
Subjective HPI/CC On Admission Date Seen by Provider: December 27, 2020 Time Seen by Provider: 09:45 Pt is a 70yoCF with a PMH of COPD, HTN, PE, and fibromyalgia on chronic opoids who presented to outside ER due to SOB. She states it started a couple of days ago and saw Dr Espinoza's VETERINARY EPIDEMIOLOGIST and was prescribed an inhaler and medrol dose saman. Despite this she continued to worsen so she called EMS who gave her Solu Medrol, Lasix, and Ativan. She was found to be hypoxic on room air at 87%. She was found to have a pneumonia and admitted for IV abx. To me today her only complaint is that she is in pain. She takes oxycodone for her fibromyalgia and states she can take no other medications that oxycodone IR because of an abdominal surgery she had years ago. She otherwise has no complaint for me regarding her respiratory status unless prompted. When prompted she is complaining of cough and sputum productive. Denies fevers. She has not been vaccinated against COVID. Subjective/Events-last exam She is grumpy. She did not work with physical therapy. She reports pain all over her body from her fibromyalgia. She does not want to get out of bed. She does not want to take her carrera out. She does not want to go home. Objective Exam Vital Signs Vital Signs Date Time Temp Pulse Resp B/P (MAP) Pulse Ox O2 Delivery O2 Flow Rate FiO2 12/28/20 06:59 91 Nasal Cannula 2.00 12/28/20 04:00 35.9 94 26 116/75 (89) Capillary Refill : General Appearance: No Apparent Distress, Obese HEENT: PERRL/EOMI, Pharynx Normal Neck: Normal Inspection, Supple Respiratory: No Respiratory Distress, Wheezing Cardiovascular: Regular Rate, Rhythm, No Murmur Gastrointestinal: Normal Bowel Sounds, Non Tender, Soft Extremity: Swelling, Other (venous stasis dermatitis) Neurologic/Psychiatric: Alert, Oriented x3, Other (agitated, irritable, uncooperative) Skin: Normal Color, Warm/Dry Results/Procedures Lab Laboratory Tests 12/27/20 07:55 12/28/20 05:26 Patient resulted labs reviewed. Imaging: Reviewed Imaging Report (from outside facility ER read as right sided pneumonia) Assessment/Plan Assessment and Plan Assess & Plan/Chief Complaint Acute on chronic respiratory failure with hypoxia Sepsis due to pneumonia COPD exacerbation with lower respiratory tract infection Continue antibiotics Continue Prednisone MAT protocol Wean oxygen as able Fibromyalgia Chronic opoid use Continue home oxycodone PT/OT Obesity Clinically significant, no acute management needs Tobacco abuse Quit one week ago Nicotine gum as needed Recommend continued cessation DVT ppx: Already on Xarelto Diagnosis/Problems Diagnosis/Problems (1) PNA (pneumonia) Status: Acute (2) COPD (chronic obstructive pulmonary disease) Status: Acute Qualifiers: COPD type: COPD with acute lower respiratory infection Qualified Codes: J44.0 - Chronic obstructive pulmonary disease with (acute) lower respiratory infection (3) Fibromyalgia Status: Acute (4) Chronic, continuous use of opioids Status: Chronic (5) Obesity Status: Chronic DAYNA SILVESTRE MD December 28, 2020 07:38
[2020-12-28] MEDS ORDERED: NICOTINE 2 MG GUM (NICORETTE) PO PRN (07:45)
[2020-12-28] MEDS: ROFLUMILAST 500 MCG TAB (DALIRESP) PO SCH (08:55)
[2020-12-28] MEDS: LORATADINE (CLARITIN) 10 MG TAB PO SCH (08:55)
[2020-12-28] MEDS: AZITHROMYCIN 250 MG TAB (ZITHROMAX) PO SCH (08:56)
[2020-12-28] MEDS ORDERED: CEFDINIR 300 MG (OMNICEF) CAP PO SCH (09:00)
[2020-12-28] MEDS ORDERED: AZIT250T12 PO (09:26)
[2020-12-28] MEDS ORDERED: CEFD300C3 PO (09:26)
[2020-12-28] MEDS ORDERED: PRED10TA22 PO (09:26)
--- NOTE | 2020-12-28 09:32 | Discharge Summary ---
Discharge Summary Instructions for Patient Via [facility], Assessment/Instructions Take medications as prescribed. Complete your course of antibiotics even if you are feeling better. Complete your prednisone taper then continue your daily prednisone. Follow-up with your primary care physician. Return with worsening shortness of breath or if you feel like you are getting worse. Physician to follow Patient: Olga Discharge Diet for Home: No Restrictions Hospital Course Date of Admission: December 25, 2020 at 02:31 Admission Diagnosis : Acute on chronic respiratory failure with hypoxia due to COPD exacerbation with acute lower respiratory infection Family Physician/Provider: [place] Espinoza DO Date of Discharge: 12/28/20 Discharge Diagnosis: Acute on chronic respiratory failure with hypoxia due to COPD exacerbation with acute lower respiratory infection Hospital Course: Ewa Matos is a 70-year-old female with past medical history of COPD, fibromyalgia, tobacco abuse, obesity, who presented with shortness of breath and was admitted with acute on chronic respiratory failure with hypoxia due to COPD exacerbation with acute lower respiratory infection. She was started on supplemental oxygen and was at her baseline at the time of discharge. She was started on antibiotics and will complete a course of oral antibiotics as an outpatient. She was started on breathing treatments and steroids and will complete a steroid taper as an outpatient. She was evaluated by physical and occupational therapy and deemed to be at her baseline. She was set up with [facility] for ongoing care and therapies. She should follow-up with her primary care physician in about a week. Labs and Pending Lab Test: Laboratory Tests 12/28/20 05:26: White Blood Count 17.7H, Red Blood Count 5.02, Hemoglobin 12.6, Hematocrit 41, Mean Corpuscular Volume 81, Mean Corpuscular Hemoglobin 25, Mean Corpuscular Hemoglobin Concent 31L, Red Cell Distribution Width 15.6H, Platelet Count 425H, Mean Platelet Volume 8.6L, Immature Granulocyte % (Auto) 1, Neutrophils (%) (Auto) 82H, Lymphocytes (%) (Auto) 8L, Monocytes (%) (Auto) 8, Eosinophils (%) (Auto) 1, Basophils (%) (Auto) 0, Neutrophils # (Auto) 14.5H, Lymphocytes # (Auto) 1.4, Monocytes # (Auto) 1.4H, Eosinophils # (Auto) 0.1, Basophils # (Auto) 0.0, Immature Granulocyte # (Auto) 0.2H, Sodium Level 137, Potassium Level 3.3L, Chloride Level 92L, Carbon Dioxide Level 36H, Anion Gap 9, Blood Urea Nitrogen 14, Creatinine 0.59L, Estimat Glomerular Filtration Rate > 60, BUN/Creatinine Ratio 24, Glucose Level 99, Calcium Level 9.6, Magnesium Level 1.8 Home Meds Active Reported Tylenol (Acetaminophen) 325 Mg Tablet 650 Mg PO Q6H PRN Iprat-Albut 0.5-3(2.5) mg/3 ml (Ipratropium/Albuterol Sulfate) 3 Ml Ampul.neb 3 Ml INH Q4H PRN Xarelto (Rivaroxaban) 20 Mg Tablet 20 Mg PO DAILY Montelukast Sodium 10 Mg Tablet 10 Mg PO DAILY Oxycodone HCl 10 Mg Tablet 10 Mg PO Q4H PRN Prednisone 5 Mg Tablet 7.5 Mg PO DAILY TAKES 1 (5MG) TABLETS Belbuca (Buprenorphine HCl) 900 Mcg Film 900 Mcg PO BID Lisinopril-Hctz 20-25 mg Tab (Lisinopril/Hydrochlorothiazide) 1 Each Tablet 1 Each PO DAILY Budesonide 1 Mg/2 Ml Ampul.neb 2 Ml INH DAILY Loratadine 10 Mg Tablet 10 Mg PO DAILY Breztri Aerosphere Inhaler (Budesonide/Glycopyr/Formoterol) 10.7 Gm Hfa.aer.ad 2 Puff INH BID Ventolin Hfa (Albuterol Sulfate) 1 Puff Puff 1 Puff INH Q4H PRN Daliresp (Roflumilast) 500 Mcg Tablet 500 Mcg PO DAILY Patient Allergies: Coded Allergies: bupropion (Verified Allergy, Unknown, 07/29/19) Height (Feet): 5 Height (Inches): 6.00 Weight (Pounds): 224 Home Health Need/Face to Face Date of Face to Face: December 28, 2020 Clinical Findings: Generalized weakness and fatigue, Instability, Muscle weakness, Shortness of breath, Unsteady gait I have seen Pt kfyw-bx-wxsj: Yes Discharged To: Home Diagnosis/Conditions: Chronic respiratory failure with hypoxia, COPD, fibromyalgia, obesity Problems/Diagnosis/Condition: (1) COPD (chronic obstructive pulmonary disease) (2) Obesity (3) Fibromyalgia (4) Chronic respiratory failure with hypoxia Patient is Homebound due to: Kay fall risk due to instabilty, Muscle weakness, Shortness of breath/distress Homebound Status Due to the above stated illness, injury or surgical procedure (medical condition or diagnosis) and associated clinical findings, the patient is homebound because of his/her inability to leave home except with aid of a supportive device and/or person AND leaving the home requires a considerable and taxing effort or is medically contraindicated. Pt req the following assistanc: Aid of another person, Cane, Walker Home Health Nursing Orders Home Health Services Order: Nursing Services, [employer]-Evaluate & Treat, Physical Therapy-Evaluate & Treat Therapy Orders Therapy Orders: OT (must have SN or PT order), Physical Therapy Therapy Specific Orders: Eval assistive deivces, Teach enviro modifications/safety, Gait training, Increase strength/endurance Certify Stmt I certify that this patient is under my care and that I, a nurse practitioner or a physician; a law office assistant working with me, had a face to face encounter that - meets the physician face to face encounter requirements with this patient as dated. Discharge Physical Exam General: Alert, Oriented X3, No Acute Distress HEENT: Atraumatic, EOMI, Mucous Memb Moist/[place] Lungs: Other (Wheezes, no respiratory distress) Heart: Regular Rate, Normal S1, Normal S2, No Murmurs Abdomen: Normal Bowel Sounds, Soft, No Tenderness Extremities: Other (Swelling, venous stasis dermatitis) Neuro: Normal Speech, Normal Tone Psych/Mental Status: Mental Status NL, Other (Agitated, irritable, uncooperative) DAYNA SILVESTRE MD December 28, 2020 09:31
[2020-12-28] MEDS: LORazepam INJ 2 MG/ML (ATIVAN) VIAL IVP PRN (10:07)
--- NOTE | 2020-12-28 14:32 | Physical Therapy Progress Note ---
Therapy Progress Note Patient in recliner, declines PT. Patient states she has already had some therapy (she had OT) and she was too tired to do any more. Patient states "I'm not going to do any more" when asked if she would perform just some exercises while seated. MARITZA NELSON PT December 28, 2020 14:32
--- NOTE | 2020-12-28 15:07 | Occupational Therapy Eval ---
OT Evaluation-General/PLF Medical Diagnosis Admission Date December 25, 2020 at 02:31 Medical Diagnosis: hypoxia/pneumonia/hypokalemia Onset Date: December 25, 2020 Therapy Diagnosis Therapy Diagnosis: decreased ADL Status Height/Weight Height (Feet): 5 Height (Inches): 6.00 Weight (Pounds): 224 Precautions Precautions/Isolations: Fall Prevention, Standard Precautions Referral Physician: David Medical History Pertinent Medical History: COPD, Heart Failure, HTN, Smoking Additional Medical History COPD, HTN, PE, CHF, fibromyalgia (chronic opiods) Current History ED due to SOB Social History Home: Single Level Current Living Status: Other Family Entry Into Home: Ramp ADL-Prior Level of Function SCALE: Activities may be completed with or without assistive devices. 9-Vjdthluetq-lowelki completes the activity by him/herself with no assistance from a helper. 5-Set-up or Clean-up Assistance-helper sets up or cleans up; patient completes activity. [place] assists only prior to or following the activity. 4-Supervision or Touching Assistance-helper provides verbal cues and/or touc татьяна/steadying and/or contact guard assistance as patient completes activity. Assistance may be provided throughout the activity or intermittently. 3-Partial/Moderate Assistance-helper does LESS THAN HALF the effort. [place] lifts, holds or supports trunk or limbs, but provides less than half the effort. 2-Substantial/Maximal Assistance-helper does MORE THAN HALF the effort. [place] lifts or holds trunk or limbs and provides more than half the effort. 4-Rmdhyscbl-wohttd does ALL the effort. Patient does none of the effort to complete the activity. Or, the assistance of 2 or more helpers is required for the patient to complete the activity. If activity was not attempted, code reason: 7-Patient Refused. 9-Not Applicable-not attempted and the patient did not perform the activity before the current illness, exacerbation or injury. 10-Not Attempted due to Environmental Limitations-(lack of equipment, weather restraints, etc.). 88-Not Attempted due to Medical Conditions or Safety Concerns. ADL PLOF Comments Pt reports needing assistance at PLOF with ADLs. Pt did not go into detail about how much assistance required. When asked if she needs help showering, she indicates she is sometimes able to do it but sometimes needs help. Self Care: Needed Some Help Functional Cognition: Independent DME/Equipment: Bath Chair, Shower DME/Equipment Comments power w/c, walker OT Current Status Subjective Pt seated in recliner, just finished showering. Pt indicates she would like this therapist to leave, but then agreeable to OT evaluation and states she is "only doing this to get doctor and you off my ass" Mental Status/Objective Patient Orientation: Person, Place, Time, Situation Attachments: Oxygen Current Upper Extremity ROM WFL Upper Extremity Coordination WFL ADL-Treatment Eating (QC): 7 (Pt states she did not eat today due to being too nervous and upset) Oral Hygiene (QC): 5 (set up at tray table) Shower/Bathe Self (QC): 1 (Pt states she did not wash any parts in the shower.) Other Treatments Pt seated in recliner with aide present. Pt just returned to recliner from shower. Pt uncooperative with OT, stating she has more important things to do than therapy. OT educated pt on the purpose and benefit of OT, she states she will give this therapist 10 minutes and she is "only doing this to get doctor and you off my ass". OT asked pt about showering, pt indicates she did not wash any parts, aide dependently showering pt. Pt states she would be able to do it at home. OT encouraged pt to complete as much as she can while in the hospital, so staff know pt can do them safely at home, pt raises her voice and states she can do it at home but she couldn't here because she is too nervous and upset. OT offered oral care and hair brushing to pt, pt indicates she has no problems with these tasks, and her hair is too wet to brush at this time. Pt finally agreeable to oral care as long as it got this therapist to leave the room. OT gathered supplies, placing in front of pt, pt then indicates she has no teeth and doesn't see why she has to do this. OT again educated pt on the purpose of OT. Pt completes oral care with set up, states that the toothpaste tastes terrible and she wants to vomit. Pt then asks for hair brush, OT provides pt with brush and pt begins brushing. Pt states her hair is too tangled due to being wet, this therapist tells pt she doesn't have to brush it at this time, pt continues brushing hair. OT starts to leave the room, pt tells therapist she hasn't watched her put her hair up yet. OT reassures pt that she does not have to brush her hair at this time, that she can wait for it to dry further. Post tx, pt seated in recliner, call light in reach and all needs met. Education OT Patient Education: Correct positioning, Modified ADL techniques, Progress toward Goal/Update tx plan, Purpose of tx/functional activities Teaching Recipient: Patient Teaching Methods: Discussion Response to Teaching: Verbalize Understanding OT Heat And Frost Insulator Helper Goals Heat And Frost Insulator Helper Goals Time Frame: Jan 04, 2021 Eating (QC): 6 Oral Hygiene (QC): 6 Toileting Hygiene (QC): 6 Shower/Bathe Self (QC): 3 Upper Body Dressing (QC): 5 Lower Body Dressing (QC): 3 On/Off Footwear (QC): 3 Additional Goals: 1-Demonstrate ADL Tasks, 2-Verbalize Understanding, 3- ImproveStrength/Diane 1=Demonstrate adherence to instructed precautions during ADL tasks. 2=Patient will verbalize/demonstrate understanding of assistive devices/modif ications for ADL. 3=Patient will improve strength/tolerance for activity to enable patient to perform ADL's. OT Education/Plan Problem List/Assessment Assessment: Decreased Activ Tolerance, Decreased UE Strength, Impaired I ADL's, Impaired Self-Care Skills Discharge Recommendations Plan/Recommendations: Continue POC Treatment Plan/Plan of Care Patient would benefit from OT for education, treatment and training to promote independence in ADL's, mobility, safety and/or upper extremity function for ADL's. Plan of Care: ADL Retraining, Functional Mobility, UE Funct Exercise/Act Treatment Duration: Jan 04, 2021 Frequency: 5 times per week Estimated Hrs Per Day: .25 hour per day Rehab Potential: Fair Time/GCodes Start Time: 13:48 Stop Time: 14:07 Total Time Billed (hr/min): 19 Billed Treatment Time 1ANA ADDISON OT December 28, 2020 15:07
== END 2020-12-28 17:55 | disposition home health service (06) | DRG 871 ==
LOC: 4TH 02:31
PROVIDERS: ADMIT Family Medicine; ATTEND Internal Medicine
DX: A41.9 Sepsis, unspecified organism (principal); J18.9 Pneumonia, unspecified organism; J96.21 Acute and chronic respiratory failure with hypoxia; J44.1 Chronic obstructive pulmonary disease with (acute) exacerbation; J44.0 Chronic obstructive pulmonary disease with (acute) lower respiratory infection; I11.0 Hypertensive heart disease with heart failure; I50.9 Heart failure, unspecified; M79.7 Fibromyalgia; F17.201 Nicotine dependence, unspecified, in remission; I73.9 Peripheral vascular disease, unspecified; E66.9 Obesity, unspecified; Z68.36 Body mass index [BMI] 36.0-36.9, adult; Z86.711 Personal history of pulmonary embolism; Z79.01 Long term (current) use of anticoagulants; Z79.891 Long term (current) use of opiate analgesic; Z82.49 Family history of ischemic heart disease and other diseases of the circulatory system
CPT/HCPCS: 36415; 80048; 83735; 83880; 85007; 85025; 85027; 94640; 94664; 94760

== ENCOUNTER 2021-05-13 11:22 | Emergency (ER) | payer MEDICARE, MEDICAID ==
[~2021-05-13] VITALS: Ht 170.2 cm; Wt 92.5 kg
[~2021-05-13 11:22] MED LIST changes: +ACET325T38 PO; +AZIT250T12 PO; +BUDE10.7 INH; +BUDE1AMP2 INH; +BUPR900F3 PO; +IPRA3AMP31 INH; +LISI1TAB26 PO; +LORA10TA7 PO; +MONT10TA32 PO; +OXYC10TA7 PO; +PRED10TA22 PO; +PRED5TAB PO; +RIVA20TA PO; +ROFL500T PO; +RT-ALBUINH INH
--- OUTSIDE RECORDS SUMMARY | 2021-05-13 11:27 | XMS REPORT | Clinical Summary ---
Author Author [facility] Organization [facility] Address Unknown Phone Unavailable Care Team Providers Care Vamper Name Role Phone Montana Espinoza PCP Source Comments Some departments are not documenting in the electronic medical record. If you d o not see the information that you expected, contact Release of Information in [facility] [employer] Information Management department at [phone] for further assistan ce in locating additional records.[facility] Allergies Comments Active Allergy Reactions Severity Noted Date nightmares, suicidal thoughts Bupropion SEE COMMENTS Low 02/05/2021 Medications End Date Status Medication Sig Dispensed Refills Start Date Active ipratropium bromide Inhale 1 vial 0 (ATROVENT) 0.02 % by mouth into nebulizer solution the lungs every 4 hours as needed for Shortness of Breath or Wheezing. Active albuterol sulfate (PROAIR Inhale 1-2 0 HFA) 90 mcg/actuation HFA puffs by aerosol inhaler mouth into the lungs every 4-6 hours as needed for Wheezing or Shortness of Breath. Active budesonide respule(+) Inhale 1 mg 0 (PULMICORT) 1 mg/2 mL solution by [facility] nebulizer solution nebulizer as directed twice daily. Active roflumilast (DALIRESP) Take 500 mcg 0 500 mcg tablet by mouth daily. Active montelukast (SINGULAIR) Take 10 mg by 0 10 mg tablet mouth at bedtime daily. Active rivaroxaban (XARELTO) 20 Take 20 mg by 0 mg tablet mouth daily. Take with food. Active hyfrowkuza-qtwylqpe-eczgi Inhale 2 0 terol (BREZTRI puffs by [employer]) 160-9-4.8 mouth into mcg/actuation inhaler the lungs twice daily. Active cetirizine (ZYRTEC) 10 mg Take 10 mg by 0 tablet mouth every morning. Active loratadine (CLARITIN) 10 Take 10 mg by 0 mg tablet mouth every morning. Active nystatin (MYCOSTATIN) Apply 0 100,000 unit/g topical topically to cream affected area twice daily. Active potassium chloride Take 2 mEq by 0 (MICRO-K) 10 mEq capsule mouth twice daily. Take with a meal and a full glass of water. Active amiodarone (CORDARONE) Take one 90 tablet 200 mg tablet tablet by 1 mouth twice daily. Take with food. Active calcium carbonate (TUMS) Chew one 0 02/15 500 mg (200 mg elemental tablet by 1 calcium) chewable tablet mouth every 4 hours as needed. Active ferrous gluconate 324 mg Take one 30 tablet 1 0 (37.5 mg iron) tab tablet by 1 mouth every 48 hours. Active ergocalciferol (vitamin Take one 12 capsule D2) (DRISDOL) 1,250 mcg capsule by 1 (50,000 unit) capsule mouth every 7 days. Active metoprolol tartrate 25 mg Take one-half 180 tablet tablet tablet by 1 mouth twice daily. Active lidocaine 2%/zinc oxide Apply one g 30 g 20%(#) topically to 1 affected area three times daily. Active nicotine polacrilex Place one 220 each (NICORETTE) 4 mg gum each inside 1 cheek (side of mouth) every 2 hours as needed. Chew to soften and park in mouth between lip and gum. May use 1 piece per hour, not to exceed 24 per day for 12 weeks. May be used longer, if needed. Active vitamins, multi Take one 0 w/minerals 9 mg iron-400 tablet by 1 mcg tab mouth daily. Active oxyCODONE 10 mg tablet Take one 180 tablet tablet by 1 mouth every 4 hours as needed Active opium tincture (OPIUM) Take 0.6 mL 118 mL oral solution by mouth 1 three times daily Active loperamide (IMODIUM A-D) Take 2 30 capsule 0 2 mg capsule capsules by 1 mouth initially, followed by 1 capsule by mouth after each loose stool up to a maximum of 8 tablets in 24 hours. Active Magnesium Chloride Take one 90 tablet 1 02 (MAG-DELAY) 64 mg TbEC tablet by 1 mouth daily. Active Problems Problem Noted Date Tobacco abuse 02/12/2021 Fibromyalgia 02/12/2021 Iron deficiency anemia secondary to inadequate dietar y iron intake 02/12/2021 Oropharyngeal dysphagia 02/11/2021 Pseudomonas pneumonia 02/11/2021 Pressure injury of right buttock, stage 2 02/11/2021 Paroxysmal atrial fibrillation 02/05/2021 Overview: Formatting of this note might be differ ent from the original. 02/07/2021 - ECHO: The patient is an a trial fibrillation with rates ranging between 110-130 bpm during imag e acquisition. Moderately thickened left ventricular casas with small cavit ibrahima size. The left ventricle systolic function is preserved. The est imated LVEF = 60%. Unable to assess diastolic function. The right ventric le is mildly dilated with mildly reduced function. Mitral annular calci fication without evidence of stenosis. Aortic valve sclerosis witho ut stenosis or regurgitation. Mild tricuspid regurgitation. Normal cent ral venous pressure (0-5 mm Hg). Estimated PASP is 41 mmHg. No pericard ial effusion. 02/15/2021 - Zio Patch: Indication: Hi story of paroxysmal atrial fibrillation. Total days monitored: 11 . Min HR of 56 bpm, max HR of 200 bpm, and avg HR of 71 bpm. Predominant underlying rhythm was Sinus Rhythm. Asymptomatic, 46 Supraventricular Tachy cardia runs occurred, the run with the fastest interval lasting 5 beats wi th a max rate of 200 bpm, the longest lasting 2 mins 7 secs with an a vg rate of 175 bpm. Isolated SVEs were frequent (10.1%, [id number]), SVE Coup lets were rare (<1.0%, 1988), and SVE Triplets were rare (<1.0%, 100). I solated VEs were rare (<1.0%, 520), and no VE Couplets or VE Triplets were present. Acute on chronic respiratory failure with hypoxia COPD (chronic obstructive pulmonary disease) 021 Hx of pulmonary embolus 02/05/2021 Hypokalemia 02/05/2021 Hypomagnesemia 02/05/2021 Resolved Problems Problem Noted Date Resolved Date Acute on chronic heart failure with preserved ejectio n fraction (HFpEF) 02/12/2021 02/12/2021 Septic shock 02/05/2021 02/11/2021 Hyponatremia 02/05/2021 02/12/2021 Encounters Care Team Description Date Type Specialty Marya Knight MD 02/15/2021 Hospital Cardiology Encounter 02/15/2021 Travel Tiffanie Moreno Cardiac Device Remote Enrollment (14 day Zio placed in [id number]) 02/15/2021 Documentation Cardiology Luis Caldera Other (Spoke with nurse, pt is not getti ng discharged today. Gave her instructions to page us 1-2hrs before getting discharged.) 02/13/2021 Telephone Cardiology Luis Caldera Other 02/13/2021 Documentation Cardiology Toi Figueroa MD Rouse, Michael T, Kecia Green MD Amos, Luke M, MD Paroxysmal atrial fibrillation (HCC) 02/05/2021 Hospital - Encounter 02/15/2021 from Last 3 Months Immunizations Name Administration Dates Next Due COVID-19 (MODERNA), mRNA 02/15/2021 vacc, 100 mcg/0.5 mL (PF) Surgical History Surgery Date Site/Laterality Comments ARTERIAL STENT PLACEMENT 08/05/2017 - 08/04/2018 CHOLECYSTECTOMY 08/05/1979 - 08/04/1980 GASTRIC BYPASS 08/05/1978 - 08/04/1979 SECTION HERNIA REPAIR Medical History Medical History Date Comments Anxiety COPD (chronic obstructive pulmonary disease) (HCC) Fibromyalgia HTN (hypertension) PAD (peripheral artery disease) (HCC) Pulmonary embolus (HCC) Family History Medical History Relation Name Comments Cancer Brother Hypertension Father Cancer-Hematologic Mother Relation Name Status Comments Brother Father Mother Social History Date Tobacco Use Types Packs/Day Years Used Quit: 01/10/2021 Former Smoker Cigarettes Smokeless Tobacco: Never Used Comments Alcohol Use Standard Drinks/Week Never 0 (1 standard drink = 0.6 o z pure alcohol) Alcohol Habits Answer Date Recorded How often do you have a drink containing alcohol? Never 02/05/2021 How many drinks containing alcohol do you have on No t asked a typical day when you are drinking? How often do you have six or more drinks on one Not asked occasion? Comment: Not asked Sex Assigned at Date Recorded Female 02/09/2021 2:33 PM CDT Last Filed Vital Signs Reading Time Taken Comments Vital Sign 112/59 02/15/2021 7:54 AM CDT Blood Pressure 68 02/15/2021 7:54 AM CDT Pulse 36.4 C (97.5 F) 02/15/2021 7:54 AM CDT Temperature - - Respiratory Rate 100% 02/15/2021 7:54 AM CDT Oxygen Saturation - - Inhaled Oxygen Concentration 105 kg (231 lb 7.7 oz) 02/13/2021 6:25 PM CDT Weight 167.6 cm (5' 6") 02/13/2021 6:25 PM CDT Height 37.36 02/13/2021 6:25 PM CDT Body Mass Index Plan of Treatment Health Maintenance Due Date Last Done Comments MEDICARE ANNUAL WELLNESS 1950 VISIT PNEUMONIA (PPSV23) 1957 VACCINE (1 of 2 - PPSV23) DTAP/TDAP VACCINES (1 - 1969 Tdap) HEPATITIS C SCREENING 1969 PHYSICAL (COMPREHENSIVE) 1969 EXAM BREAST CANCER SCREENING 1991 COLORECTAL CANCER 2001 SCREENING SHINGLES RECOMBINANT 2001 VACCINE (1 of 2) OSTEOPOROSIS 2016 SCREENING/MONITORING INFLUENZA VACCINE 03/05/2021 COVID-19 VACCINE (2 - 03/15/2021 02/15/2021 Moderna 2-dose series) Goals Goal Patient Associated Recent Progress Patient-Stat Aut hor Goal Type Problems ed? Remain independent Hospital On track (02/09/2021 Yes Mable Coley, 2:37 PM CDT) RN Note: Go to rehab and get stronger and normal Procedures Comments Procedure Name Priority Date/Time Associated Diag nosis PATIENT FROM CLINIC - Routine 03/10/2021 MORE THAN 7 DAYS 2:12 PM CDT -LONG-TERM PLAYGROUND ATTENDANT HC MAGNESIUM Routine 02/15/2021 7:57 AM CDT HC COMPREHENSIVE Routine 02/15/2021 METABOLIC PANEL 7:57 AM CDT HC CBC W/ AUTOMATED DIFF Routine 02/15/2021 7:57 AM CDT COVID-19 (SARS-COV-2) PCR STAT 02/14/2021 12:23 PM CDT HC COMPREHENSIVE Routine 02/14/2021 METABOLIC PANEL 6:55 AM CDT HC CBC W/ AUTOMATED DIFF Routine 02/14/2021 6:55 AM CDT HC COMPREHENSIVE Routine 02/13/2021 METABOLIC PANEL 10:50 AM CDT HC CBC W/ AUTOMATED DIFF Routine 02/13/2021 10:50 AM CDT HC MAGNESIUM (MGCT) Routine 02/13/2021 10:50 AM CDT HC CBC W/ AUTOMATED DIFF Routine 02/12/2021 6:16 AM CDT HC COMPREHENSIVE Routine 02/12/2021 METABOLIC PANEL 6:16 AM CDT HC PHOSPHOROUS, SERUM Routine 02/12/2021 (PO4CT) 6:16 AM CDT HC MAGNESIUM (MGCT) Routine 02/12/2021 6:16 AM CDT HC COMPREHENSIVE Routine 02/11/2021 METABOLIC PANEL 7:26 AM CDT HC PHOSPHOROUS, SERUM Routine 02/11/2021 (PO4CT) 7:26 AM CDT HC MAGNESIUM (MGCT) Routine 02/11/2021 7:26 AM CDT HC CBC W/ AUTOMATED DIFF Routine 02/11/2021 7:26 AM CDT CHEST SINGLE VIEW TODD 02/10/2021 1:13 PM CDT HC COMPREHENSIVE Routine 02/10/2021 METABOLIC PANEL 6:26 AM CDT HC VITAMIN B12 Routine 02/10/2021 6:26 AM CDT HC IRON BINDING CAPACITY Routine 02/10/2021 + %SAT 6:26 AM CDT HC FOLATE, SERUM Routine 02/10/2021 6:26 AM CDT HC 25-OH VITAMIN D Routine 02/10/2021 6:26 AM CDT HC PHOSPHOROUS, SERUM Routine 02/10/2021 (PO4CT) 6:26 AM CDT HC MAGNESIUM (MGCT) Routine 02/10/2021 6:26 AM CDT HC CBC W/ AUTOMATED DIFF Routine 02/10/2021 6:26 AM CDT from Last 3 Months Results * LONG-TERM PLAYGROUND ATTENDANT (03/10/2021 2:12 PM CDT) Specimen Narrative Performed At OTHER OUTSIDE LAB Indication: History of paroxysmal at ria fibrillation. Total days monitored: 11 Min HR of 56 bpm, max HR of 200 bpm, and avg HR of 71 bpm. Predominant underlying rhythm was Sinus Rhythm. Asymptomatic, 46 Supraventricular Ta chycardia runs occurred, the run with the fastest interval lasting 5 patrick ts with a max rate of 200 bpm, the longest lasting 2 mins 7 secs with an a vg rate of 175 bpm. Isolated SVEs were frequent (10.1%, [id number]), SVE Couplets were rare (<1.0%, 1988), and SVE Triplets were ra re (<1.0%, 100). Isolated VEs were rare (<1.0%, 520), and no VE Couplets or VE Triplets were present. Performing Organization Address City/State/ZIP Code P roddy Number OTHER OUTSIDE LAB * CBC AND DIFF (02/15/2021 7:57 AM CDT) Only the most recent of 6 results within the time period is included. White Blood 8.0 4.5 - 11.0 K/UL [facility] Cells RBC 4.49 4.0 - 5.0 M/UL [facility] Hemoglobin 11.2 (L) 12.0 - 15.0 GM/DL [facility] Hematocrit 34.6 (L) 36 - 45 % [facility] MCV 77.1 (L) 80 - 100 FL [facility] MCH 25.0 (L) 26 - 34 PG [facility] MCHC 32.5 32.0 - 36.0 G/DL [facility] RDW 18.0 (H) 11 - 15 % [facility] Platelet Count 434 (H) 150 - 400 K/UL [facility] MPV 6.7 (L) 7 - 11 FL [facility] Neutrophils 69 41 - 77 % [facility] Lymphocytes 18 (L) 24 - 44 % [facility] Monocytes 12 4 - 12 % [facility] Eosinophils 1 0 - 5 % [facility] Basophils 0 0 - 2 % [facility] Absolute 5.54 1.8 - 7.0 K/UL [facility] Neutrophil Count Absolute Lymph 1.44 1.0 - 4.8 K/UL [facility] Count Absolute 0.92 (H) 0 - 0.80 K/UL [facility] Monocyte Count Absolute 0.04 0 - 0.45 K/UL [facility] Eosinophil Count Absolute 0.03 0 - 0.20 K/UL [facility] Basophil Count Specimen Blood Performing Organization Address City/State/ZIP Code P roddy Number [facility] [address] [place] [address] * MAGNESIUM (02/15/2021 7:57 AM CDT) Magnesium 1.6 1.6 - 2.6 mg/dL [facility] Specimen Blood Performing Organization Address City/State/ZIP Code P rdody Number [facility] [address] [place] [address] * COMPREHENSIVE METABOLIC PANEL (02/15/2021 7:57 AM CDT) Only the most recent of 6 results within the time period is included. Sodium 138 137 - 147 MMOL/L [facility] Potassium 3.9 3.5 - 5.1 MMOL/L [facility] Chloride 103 98 - 110 MMOL/L [facility] Glucose 82 70 - 100 MG/DL [facility] Blood Urea 11 7 - 25 MG/DL [facility] Nitrogen Creatinine 0.40 0.4 - 1.00 MG/DL [facility] Calcium 8.5 8.5 - 10.6 MG/DL [facility] Total Protein 4.4 (L) 6.0 - 8.0 G/DL [facility] Total Bilirubin 0.4 0.3 - 1.2 MG/DL [facility] Albumin 2.3 (L) 3.5 - 5.0 G/DL [facility] Alk Phosphatase 59 25 - 110 U/L [facility] AST (SGOT) 14 7 - 40 U/L [facility] CO2 30 21 - 30 MMOL/L [facility] ALT (SGPT) 12 7 - 56 U/L [facility] Anion Gap 5 3 - 12 [facility] eGFR Non >60 >60 mL/min [facility] Comment: [place] The eGFR is not validated f or use in drug dosing adjustments. Continue to use estimated creatinine clearance per dosing reference text. Please contact the Clinical Pharmacist for questions. eGFR >60 >60 mL/min [facility] [place] Comment: The eGFR is not validated for use in drug dosing adjustments. Continue to use estimated creatinine clearance per dosing reference text. Please contact the Clinical Pharmacist for questions. Specimen Blood Performing Organization Address City/State/ZIP Code P roddy Number [facility] [address] [place] [address] * COVID-19 (SARS-COV-2) PCR (02/14/2021 12:23 PM CDT) COVID-19 FLOCKED SWAB [facility] (SARS-CoV-2) NASOPHARYNGEAL PCR Source COVID-19 NOT DETECTED DN-NOT DETECTED [facility] (SARS-CoV-2) Comment: PCR This assay is designed to detect the S and/or ORF1ab genes of SARS-CoV-2 using nucleic acid amplification. A "Not Detected" result does not preclude the possibility of SARS-CoV-2 infection since the adequacy of sample collection and/or low viral burden may result in the presence of viral nucleic acids below the analytical sensitivity of this test method. Test results should be used along with other clinical and laboratory data in making the diagnosis. Test parameters have not been validated for screening in asymptomatic patients.This test has not been FDA cleared or approved. This test is authorized for use under the FDA Emergency Use Authorization and performance characteristics have been verified by the [facility]. Fact sheet for providers: https://www.fda.gov/media/3683 85/download Fact sheet for patients: https://www.fda.gov/media/1362 87/download Specimen Flocked Swab - Nasopharyngeal Performing Organization Address City/State/ZIP Code P roddy Number [facility] [address] [place] [address] * MAGNESIUM CELLULAR THERAPEUTICS (02/13/2021 10:50 AM CDT) Only the most recent of 4 results within the time period is included. Magnesium 1.7 1.6 - 2.6 mg/dL [facility] Specimen Blood Performing Organization Address City/[facility]/ZIP Code P roddy Number [facility] [address] [place] [id number] * PHOSPHORUS CELLULAR THERAPEUTICS (02/12/2021 6:16 AM CDT) Only the most recent of 3 results within the time period is included. Phosphorus 2.1 2.0 - 4.5 MG/DL [facility] Specimen Blood Performing Organization Address City/[facility]/ZIP [facility] P roddy Number [facility] [address] [place] [address] * CHEST SINGLE VIEW (02/10/2021 1:13 PM CDT) Specimen Impressions Performed At 1. Stable left greater than right pleural effusions. [facility] 2. Increasing left lower lobe opacities with volume loss again suspicious for atelectasis possibly from aspiration or infection. Attention on close follow-up radiographs to reassess. Finalized by Arsenio Duenas M.D. o n 02/10/2021 1:22 PM. Dictated by Arsenio Duenas M.D. on 02/10/2021 1: 20 PM. Narrative Performed At CHEST SINGLE VIEW [facility] INDICATION: worsening rhonchi in settin g of dysphagia COMPARISON STUDY: February 05, 2021. FINDINGS: Lungs/Pleura: Low left lung volume. Inc reasing left lower lobe opacities. Stable left greater than right pleural effusio ns. Heart and Mediastinum: Leftward shift o f the heart and mediastinal structures. Procedure Note Interface, Radiant Results - 02/10/2021 1:25 PM CDT CHEST SINGLE VIEW INDICATION: worsening rhonchi in setting of dysphagia COMPARISON STUDY: February 05, 2021. FINDINGS: Lungs/Pleura: Low left lung volume. Increasing left lower lobe opacities. Stable left greater than right pleural effusions. Heart and Mediastinum: Leftward shift of the heart and mediastinal structures. IMPRESSION 1. Stable left greater than right pleura l effusions. 2. Increasing left lower lobe opacities with volume loss again suspicious for atelectasis possibly from aspiration or infection. Attention on close follow-up radiographs to reassess. Finalized by Arsenio Duenas M.D. on 02/10/2021 1:22 PM. Dictated by Arsenio Duenas M.D. on 02/10/2021 1:20 PM. Performing Organization Address City/[facility]/ZIP Code P roddy Number [facility] * IRON + BINDING CAPACITY + %SAT+ FERRITIN (02/10/2021 6:26 AM CDT) Iron 47 (L) 50 - 160 MCG/DL [facility] Iron 231 (L) 270 - 380 MCG/DL [facility] Binding-TIBC % Saturation 20 (L) 28 - 42 % [facility] Ferritin 79 10 - 200 NG/ML [facility] Specimen Blood Performing Organization Address [facility] P roddy Number [facility] [address] [place] [address] * 25-OH VITAMIN D (D2 + D3) (02/10/2021 6:26 AM CDT) Vitamin 9.9 (L) 30 - 80 NG/ML [facility] D(25-OH)Total Specimen Blood Performing Organization Address [facility] P roddy Number [facility] [address] [place] [address] * FOLATE, SERUM (02/10/2021 6:26 AM CDT) Serum Folate 10.0 >3.9 NG/ML [facility] Specimen Blood Performing Organization Address [facility] P roddy Number [facility] [address] [place] [address] * VITAMIN B12 (02/10/2021 6:26 AM CDT) Vitamin B12 1,155 (H) 180 - 914 PG/ML [facility] Specimen Blood Performing Organization Address [facility] P roddy Number [facility] [address] [place] [address] from Last 3 Months Insurance Type Payer Benefit Subscriber ID Effective Phone Address Plan / Dates Group Medicare MEDICARE MEDICARE [id number] 2016-P PART A AND resent B Medicaid [facility] MEDICAID [facility] [id number] 2020-P COMMUNITY resent PLAN [address] (Home) [address] [phone] Advance Directives Patient Grinder Hand Explanation Type Date Recorded Advance 02/14/2021 8:58 PM Directive/DPOA Date Inactivated Comments Code Status Date Activated 02/15/2021 12:02 PM Full Code 02/05/2021 2:38 PM Provider has discussed Code Status No, more discussi on w/Patient or Family? needed
--- NOTE | 2021-05-13 11:34 | ED General ---
General Chief Complaint: Neurological Problems Stated Complaint: GEN WEAKNESS History of Present Illness Date Seen by Provider: May 13, 2021 Time Seen by Provider: 11:30 Initial Comments 70-year-old female presents via EMS from home where she lives with family with complaint of progressive weakness and not taking care of herself. Patient with past medical history significant for COPD. Family states that her legs are swelling up more than normal. She denies any pain or complaint and denies shortness of air. She is on home oxygen 2 L per nasal cannula. Allergies and Home Medications Allergies Coded Allergies: bupropion (Verified Allergy, Unknown, 07/29/19) Patient Home Medication List Home Medication List Reviewed: Yes Acetaminophen (Tylenol) 325 Mg Tablet, 650 MG PO Q6H PRN for PAIN-MILD (1-4), (Reported) Entered as Reported by: SEFERINO SEAMAN on 12/26/201120 Albuterol Sulfate (Ventolin Hfa) 1 Puff Puff, 1 PUFF INH Q4H PRN for SHORTNESS OF BREATH, (Reported) Entered as Reported by: SEFERINO SEAMAN on 12/26/201120 Azithromycin (Azithromycin) 250 Mg Tablet, 250 MG PO DAILY Prescribed by: DAYNA SILVESTRE on 12/28/20925 Budesonide (Budesonide) 1 Mg/2 Ml Ampul.neb, 2 ML INH DAILY, (Reported) Entered as Reported by: SEFERINO SEAMAN on 12/26/201120 Budesonide/Glycopyr/Formoterol (Breztri Aerosphere Inhaler) 10.7 Gm Hfa.aer.ad, 2 PUFF INH BID, (Reported) Entered as Reported by: SEFERINO SEAMAN on 12/26/201120 Buprenorphine HCl (Belbuca) 900 Mcg Film, 900 MCG PO BID, (Reported) Entered as Reported by: SEFERINO SEAMAN on 12/26/201120 Cefdinir (Cefdinir) 300 Mg Capsule, 300 MG PO BID Prescribed by: DAYNA SILVESTRE on 12/28/20925 Ipratropium/Albuterol Sulfate (Iprat-Albut 0.5-3(2.5) mg/3 ml) 3 Ml Ampul.neb, 3 ML INH Q4H PRN for SHORTNESS OF BREATH, (Reported) Entered as Reported by: SEFERINO SEAMAN on 12/26/20 112 Lisinopril/Hydrochlorothiazide (Lisinopril-Hctz 20-25 mg Tab) 1 Each Tablet, 1 EACH PO DAILY, (Reported) Entered as Reported by: SEFERINO SEAMAN on 12/26/20 112 Loratadine (Loratadine) 10 Mg Tablet, 10 MG PO DAILY, (Reported) Entered as Reported by: SEFERINO SEAMAN on 12/26/20 112 Montelukast Sodium (Montelukast Sodium) 10 Mg Tablet, 10 MG PO DAILY, (Reported) Entered as Reported by: SEFERINO SEAMAN on 12/26/20 112 Oxycodone HCl (Oxycodone HCl) 10 Mg Tablet, 10 MG PO Q4H PRN for PAIN-SEVERE (8- 10), (Reported) Entered as Reported by: SEFERINO SEAMAN on 12/26/20 112 Prednisone (Prednisone) 5 Mg Tablet, 7.5 MG PO DAILY, (Reported) Entered as Reported by: SEFERINO SEAMAN on 12/26/20 112 Prednisone (Prednisone) 10 Mg Tab.ds.pk, 10 MG PO DAILY Prescribed by: DAYNA SILVESTRE on 12/28/20 0926 Rivaroxaban (Xarelto) 20 Mg Tablet, 20 MG PO DAILY, (Reported) Entered as Reported by: SEFERINO SEAMAN on 12/26/20 112 Roflumilast (Daliresp) 500 Mcg Tablet, 500 MCG PO DAILY, (Reported) Entered as Reported by: SHARI DAVIES on 12/25/20 0407 Review of Systems Review of Systems Constitutional: No fever, No malaise; weakness EENTM: no symptoms reported Respiratory: No cough, No short of breath; other (baseline respiratory status) Cardiovascular: No chest pain; edema (worsened LE edema- chronic); No syncope Gastrointestinal: No abdominal pain, No vomiting Musculoskeletal: no symptoms reported Skin: change in color (swelling and redness of legs); No rash Psychiatric/Neurological: Denies Seizure; Weakness Past Qnisxtx-Ipfasx-Tihgel Hx Patient Social History Tobacco Use?: Yes Seasonal Allergies Seasonal Allergies: No Past Medical History Surgeries: Yes ("intestinal bypass and 2 c-sections") Gallbladder Respiratory: Yes Pneumonia, COPD Currently Using CPAP: No Currently Using BIPAP: No Cardiac: Yes (CHF) Chronic Edema/Swelling, Hypertension Neurological: No Genitourinary: No Gastrointestinal: No Musculoskeletal: No Endocrine: No HEENT: No Cancer: No Psychosocial: No Integumentary: No Blood Disorders: No Family Medical History Mother- leukemia Father- HTN Physical Exam Vital Signs Vital Signs - First Documented 05/13/21 05/13/21 11:27 17:04 Temp 35.5 Pulse 97 Resp 17 B/P (MAP) 88/75 (79) Pulse Ox 98 O2 Delivery Nasal Cannula O2 Flow Rate 2.00 Capillary Refill : Height, Weight, BMI Height: 5'6.00" Weight: 224lbs. oz. 101.488456bc; 38.97 BMI Method:Stated General Appearance: No Apparent Distress, Chronically ill HEENT: PERRL/EOMI, Normal ENT Inspection Neck: Normal Inspection, Supple Respiratory: Decreased Breath Sounds; No Respiratory Distress; Wheezing Cardiovascular: Regular Rate, Rhythm, Other (chronic LE edema with weeping of skin) Gastrointestinal: Non Tender, Soft; No Guarding Back: No CVA Tenderness, No Vertebral Tenderness Extremity: Normal Capillary Refill, Pedal Edema (and chronic LE edema) Neurologic/Psychiatric: Alert, Oriented x3, No Motor/Sensory Deficits Focused Exam Lactate Level 05/13/21 13:00: Lactic Acid Level 1.21 Lactic Acid Level Laboratory Tests Test 05/13/21 13:00 Lactic Acid Level 1.21 MMOL/L (0.50-2.00) Progress/Results/Core Measures Suspected Sepsis SIRS Temperature: Pulse: Respiratory Rate: Laboratory Tests 05/13/21 13:00: White Blood Count 16.6H Blood Pressure / Mean: 05/13/21 13:00: Lactic Acid Level 1.21 Laboratory Tests 05/13/21 11:58: Creatinine 1.33H, Total Bilirubin 0.4 05/13/21 13:00: Platelet Count 619H Results/Orders Lab Results Laboratory Tests Test 05/13/21 11:58 05/13/21 13:00 Range/Units Sodium Level 135 135-145 MMOL/L Potassium Level 3.7 3.6-5.0 MMOL/L Chloride Level 101 98-107 MMOL/L Carbon Dioxide Level 20 L 21-32 MMOL/L Anion Gap 14 5-14 MMOL/L Blood Urea Nitrogen 51 H 7-18 MG/DL Creatinine 1.33 H 0.60-1.30 MG/DL Estimat Glomerular Filtration Rate 40 BUN/Creatinine Ratio 38 Glucose Level 99 70-105 MG/DL Calcium Level 9.8 8.5-10.1 MG/DL Corrected Calcium 10.8 H 8.5-10.1 MG/DL Total Bilirubin 0.4 0.1-1.0 MG/DL Aspartate Amino Transf (AST/SGOT) 14 5-34 U/L Alanine Aminotransferase (ALT/SGPT) 11 0-55 U/L Alkaline Phosphatase 126 40-136 U/L Troponin I < 0.30 <0.30 NG/ML Pro-B-Type Natriuretic Peptide 211.7 H <75.0 PG/ML Total Protein 6.3 L 6.4-8.2 GM/DL Albumin 2.7 L 3.2-4.5 GM/DL White Blood Count 16.6 H 4.3-11.0 10^3/uL Red Blood Count 4.44 3.80-5.11 10^6/uL Hemoglobin 11.2 L 11.5-16.0 g/dL Hematocrit 36 35-52 % Mean Corpuscular Volume 82 80-99 fL Mean Corpuscular Hemoglobin 25 25-34 pg Mean Corpuscular Hemoglobin Concent 31 L 32-36 g/dL Red Cell Distribution Width 16.8 H 10.0-14.5 % Platelet Count 619 H 130-400 10^3/uL Mean Platelet Volume 8.8 L 9.0-12.2 fL Immature Granulocyte % (Auto) 1 % Neutrophils (%) (Auto) 71 42-75 % Lymphocytes (%) (Auto) 17 12-44 % Monocytes (%) (Auto) 10 0-12 % Eosinophils (%) (Auto) 1 0-10 % Basophils (%) (Auto) 0 0-10 % Neutrophils # (Auto) 11.8 H 1.8-7.8 X 10^3 Lymphocytes # (Auto) 2.8 1.0-4.0 X 10^3 Monocytes # (Auto) 1.6 H 0.0-1.0 X 10^3 Eosinophils # (Auto) 0.1 0.0-0.3 10^3/uL Basophils # (Auto) 0.1 0.0-0.1 10^3/uL Immature Granulocyte # (Auto) 0.2 H 0.0-0.1 10^3/uL Neutrophils % (Manual) 74 % Lymphocytes % (Manual) 22 % Monocytes % (Manual) 3 % Eosinophils % (Manual) 1 % Toxic Granulation 4+ Platelet Estimate INCREASED Lactic Acid Level 1.21 0.50-2.00 MMOL/L My Orders Orders - ANU BRAUN DO Ed Iv/Invasive Line Start (05/13/21 11:34) Troponin I Fs (05/13/21 11:34) Cbc With Automated Diff (05/13/21 11:34) Comprehensive Metabolic Panel (05/13/21 11:34) Lactic Acid Analyzer (05/13/21 11:34) Probnp Fs (05/13/21 11:34) Chest Pa/Lat (2 View) (05/13/21 11:34) Ekg Tracing (05/13/21 11:34) Ns Iv 500 Ml (Sodium Chloride 0.9%) (05/13/21 13:00) Manual Differential (05/13/21 13:00) Albuterol/Ipra Inhalation Soln (Duoneb I (05/13/21 14:15) Ns Iv 500 Ml (Sodium Chloride 0.9%) (05/13/21 14:15) Svn Small Volume Nebulizer (05/13/21 14:09) Ondansetron Oral Dissolve Tab (Zofran (05/13/21 16:53) Medications Given in ED Current Medications Medications Dose Ordered Sig/Salvador Route Start Time Stop Time Status Last Admin Dose Admin Albuterol/ Ipratropium 3 ml ONCE ONCE INH 05/13/21 14:15 05/13/21 14:18 DC 05/13/21 14:24 3 ML Vital Signs/I&O 05/13/21 05/13/21 11:27 17:04 Temp 35.5 Pulse 97 99 Resp 17 16 B/P (MAP) 88/75 (79) 81/44 Pulse Ox 98 98 O2 Delivery Nasal Cannula Nasal Cannula O2 Flow Rate 2.00 Capillary Refill : Diagnostic Imaging Diagonstic Imaging: Xray Plain Films/CT/US/NM/MRI: chest Comments COMPARISON: 09/28/2019. FINDINGS: Chronic fibrotic changes are visualized in the right perihilar region and left lung base. There is blunting of the left costophrenic angle. No large pleural effusion or pneumothorax is seen. The cardiomediastinal silhouette is normal in size and contour. No acute osseous abnormality is seen. IMPRESSION: 1. Relatively stable appearance of the chest with likely scarring in the right perihilar region and left lung base. Blunting of the left costophrenic angle may represent scarring versus small pleural effusion. Dictated by: Dictated on workstation # [id number] Dict: 05/13/21 1224 Trans: 05/13/21 1236 [facility] [id number] Interpreted by: JENNY PAINTER DO Electronically signed by: JENNY PAINTER DO 05/13/21 1236 Departure Communication (Admissions) Time/Spoke to Admitting Phy: 13:55 Initially called PCP, Dr Espinoza @ 1325, but he is not currently admitting @ [facility] where pt's family wants to be admitted. Called hospitalist, Dr Guthrie who accepts for transfer to [facility] @ 1355. Impression Primary Impression: Weakness Additional Impressions: Dehydration Renal insufficiency CHF (congestive heart failure) Qualified Codes: I50.9 - Heart failure, unspecified Disposition: 02 XFER SHT-TRM HOSP ([facility]) Condition: Stable Admissions Decision to Admit Reason: Admit from ER (General) Decision to Admit/Date: May 13, 2021 Time/Decision to Admit Time: 13:00 Transfer Transfer Reason: Patient preference Departure-Patient Inst. Referrals: BROWN ESPINOZA DO (PCP/Family) Primary Care Physician ANU BRAUN DO May 13, 2021 11:34
[2021-05-13 12:23] LABS: BUN/CREATININE RATIO 38; CARBON DIOXIDE 20 MMOL/L (21-32); CHLORIDE 101 MMOL/L (98-107); CREATININE SERUM 1.33 MG/DL (0.60-1.30); GFR ESTIMATED 40; POTASSIUM 3.7 MMOL/L (3.6-5.0); SODIUM 135 MMOL/L (135-145)
[2021-05-13 12:24] LABS: ALANINE AMINOTRANSFERASE 11 U/L (0-55); ALBUMIN 2.7 GM/DL (3.2-4.5); ALKALINE PHOSPHATASE 126 U/L (40-136); BILIRUBIN,TOTAL 0.4 MG/DL (0.1-1.0); CALCIUM 9.8 MG/DL (8.5-10.1); GLUCOSE 99 MG/DL (70-105); TOTAL PROTEIN 6.3 GM/DL (6.4-8.2)
--- NOTE | 2021-05-13 12:33 | Diagnostic Imaging Report ---
EXAMINATION: Chest 2 view HISTORY: Weakness. COMPARISON: 09/28/2019. FINDINGS: Chronic fibrotic changes are visualized in the right perihilar region and left lung base. There is blunting of the left costophrenic angle. No large pleural effusion or pneumothorax is seen. The cardiomediastinal silhouette is normal in size and contour. No acute osseous abnormality is seen. IMPRESSION: 1. Relatively stable appearance of the chest with likely scarring in the right perihilar region and left lung base. Blunting of the left costophrenic angle may represent scarring versus small pleural effusion. Dictated by: Dictated on workstation # [id number]
[2021-05-13] MEDS ORDERED: NS IV 500 ML 500 ML IV SCH ×2 (13:00→14:15)
[2021-05-13 13:07] LABS: BASOPHILS # (AUTO) 0.1 10^3/uL (0.0-0.1); BASOPHILS % (AUTO) 0 % (0-10); EOSINOPHILS # (AUTO) 0.1 10^3/uL (0.0-0.3); EOSINOPHILS % (AUTO) 1 % (0-10); HEMATOCRIT 36 % (35-52); HEMOGLOBIN 11.2 g/dL (11.5-16.0); LYMPHOCYTES # (AUTO) 2.8 X 10^3 (1.0-4.0); LYMPHOCYTES % (AUTO) 17 % (12-44); MEAN CORPUSCULAR HEMOGLOBIN 25 pg (25-34); MEAN CORPUSCULAR HGB CONC 31 g/dL (32-36); MEAN CORPUSCULAR VOLUME 82 fL (80-99); MEAN PLATELET VOLUME 8.8 fL (9.0-12.2); MONOCYTES # (AUTO) 1.6 X 10^3 (0.0-1.0); MONOCYTES % (AUTO) 10 % (0-12); NEUTROPHILS # (AUTO) 11.8 X 10^3 (1.8-7.8); NEUTROPHILS % (AUTO) 71 % (42-75); PLATELET COUNT 619 10^3/uL (130-400); WHITE BLOOD COUNT 16.6 10^3/uL (4.3-11.0)
[2021-05-13 13:16] LABS: EOSINOPHILS % (MANUAL) 1 %; LYMPHOCYTES % (MANUAL) 22 %; MONOCYTES % (MANUAL) 3 %; NEUTROPHILS % (MANUAL) 74 %
[2021-05-13 13:17] LABS: PLATELET ESTIMATE INCREASED; TOXIC GRANULATION/VACUOLAZATIO 4+
[2021-05-13] MEDS ORDERED: RT-ALBUTEROL/IPRATROPIUM 3 ML (DUONEB) VIAL INH ONE (14:15)
[2021-05-13] MEDS ORDERED: ONDANSETRON 4 MG (ZOFRAN) ORAL DISSOLVE TAB PO STA (16:53)
[2021-05-13 17:04] VITALS: BP 81/44
== END 2021-05-13 17:04 | disposition short-term general hospital (02) ==
LOC: EDUNIT# 11:22 → ER FS 11:23
DX: R53.1 Weakness (principal); E86.0 Dehydration; N28.9 Disorder of kidney and ureter, unspecified; I11.0 Hypertensive heart disease with heart failure; I50.9 Heart failure, unspecified; J44.9 Chronic obstructive pulmonary disease, unspecified; Z79.01 Long term (current) use of anticoagulants; Z79.52 Long term (current) use of systemic steroids
CPT/HCPCS: 36415; 71046; 80053; 83605; 83880; 84484; 85007; 85027; 93005

== ENCOUNTER → 2021-06-10 | Outpatient (CLI) | payer MEDICARE, MEDICAID ==
[2021-06-10 16:46] LABS: BACTERIA,URINE MODERATE /HPF; BILIRUBIN,URINE NEGATIVE (NEGATIVE); CLARITY,URINE CLOUDY; COLOR,URINE YELLOW; GLUCOSE, URINE (UA) NEGATIVE (NEGATIVE); KETONES,URINE NEGATIVE (NEGATIVE); LEUKOCYTE ESTERASE ,URINE 3+ (NEGATIVE); NITRITE,URINE NEGATIVE (NEGATIVE); PH,URINE 7.5 (5-9); PROTEIN,URINE NEGATIVE (NEGATIVE); WBC,URINE TNTC /HPF
== END ==
PROVIDERS: ATTEND Emergency Medicine
DX: N32.81 Overactive bladder (principal)
CPT/HCPCS: 81000; 87077; 87088

== ENCOUNTER 2021-09-21 04:45 | Emergency (ER) | payer MEDICARE, MEDICAID ==
[~2021-09-21 04:45] MED LIST changes: -LISI1TAB26 PO; +LISI1TAB48 PO; +MONT-40 PO; -MONT10TA32 PO
--- NOTE | 2021-09-21 05:14 | ED CPR ---
HPI-CPR General Stated Complaint: UNRESPONSIVE Source of Information: EMS, [facility] Records, Old Records History of Present Illness Date Seen by Provider: Sep 21, 2021 Time Seen by Provider: 04:45 Initial Comments 71-year-old female presenting from medical [place] by EMS. Patient had reportedly had some nausea and vomiting around 945. She was given Zofran to help with this. She then was given her scheduled oxycodone at midnight. When they next checked on her around 4 AM she was noted to be unresponsive and had eyes fixed and open. She was not responding for EMS and they had difficulty obtaining vital signs for her so they brought her to the ED as a code Red. On arrival to the ED it was noted that she was not breathing and so Code Blue was started with chest compressions and obtained IV access. ETT was placed 7.5 cm tube 24 cm at the gums. She had good color change to End Tidal CO2 but she had blood coming back in the ETT. She was given 1 mg of epinephrine but continued to have asystole. As she was having copious amounts of blood coming from her mouth and melanotic appearing stool from her adult diaper. At 501 am she was pronounced as it was felt to be futile to continue efforts due to her having large amounts of blood in ETT from lungs and stomach as well as fixed and dilated pupils without response to CPR efforts. Initial Complaints: Found Unresponsive Witnessed Arrest: No Bystander CPR: No Paramedics Initial Findings: Agonal Respirations, Unresponsive Pre Hospital Treatment: Bag Valve Mask Allergies and Home Medications Allergies Coded Allergies: bupropion (Verified Allergy, Unknown, 07/29/19) Patient Home Medication List Home Medication List Reviewed: Yes Acetaminophen (Tylenol) 325 Mg Tablet, 650 MG PO Q6H PRN for PAIN-MILD (1-4), (Reported) Entered as Reported by: SEFERINO SEAMAN on 12/26/20 112 Albuterol Sulfate (Ventolin Hfa) 1 Puff Puff, 1 PUFF INH Q4H PRN for SHORTNESS OF BREATH, (Reported) Entered as Reported by: SEFERINO SEAMAN on 12/26/20 112 Azithromycin (Azithromycin) 250 Mg Tablet, 250 MG PO DAILY Prescribed by: DAYNA SILEVSTRE on 12/28/20 0926 Budesonide (Budesonide) 1 Mg/2 Ml Ampul.neb, 2 ML INH DAILY, (Reported) Entered as Reported by: SEFERINO SEAMAN on 12/26/201120 Budesonide/Glycopyr/Formoterol (Breztri Aerosphere Inhaler) 10.7 Gm Hfa.aer.ad, 2 PUFF INH BID, (Reported) Entered as Reported by: SEFERINO SEAMAN on 12/26/201120 Buprenorphine HCl (Belbuca) 900 Mcg Film, 900 MCG PO BID, (Reported) Entered as Reported by: SEFERINO SEAMAN on 12/26/201120 Cefdinir (Cefdinir) 300 Mg Capsule, 300 MG PO BID Prescribed by: DAYNA SILVESTRE on 12/28/20925 Ipratropium/Albuterol Sulfate (Iprat-Albut 0.5-3(2.5) mg/3 ml) 3 Ml Ampul.neb, 3 ML INH Q4H PRN for SHORTNESS OF BREATH, (Reported) Entered as Reported by: SEFERINO SEAMAN on 12/26/201120 Lisinopril/Hydrochlorothiazide (Lisinopril-Hctz 20-25 mg Tab) 1 Each Tablet, 1 EACH PO DAILY, (Reported) Entered as Reported by: SEFERINO SEAMAN on 12/26/201120 Loratadine (Loratadine) 10 Mg Tablet, 10 MG PO DAILY, (Reported) Entered as Reported by: SEFERINO SEAMAN on 12/26/201120 Montelukast Sodium (Montelukast Sodium) 10 Mg Tablet, 10 MG PO DAILY, (Reported) Entered as Reported by: SEFERINO SEAMAN on 12/26/201120 Oxycodone HCl (Oxycodone HCl) 10 Mg Tablet, 10 MG PO Q4H PRN for PAIN-SEVERE (8- 10), (Reported) Entered as Reported by: SEFERINO SEAMAN on 12/26/201120 Prednisone (Prednisone) 5 Mg Tablet, 7.5 MG PO DAILY, (Reported) Entered as Reported by: SEFERINO SEAMAN on 12/26/201120 Prednisone (Prednisone) 10 Mg Tab.ds.pk, 10 MG PO DAILY Prescribed by: DAYNA SILVESTRE on 12/28/20925 Rivaroxaban (Xarelto) 20 Mg Tablet, 20 MG PO DAILY, (Reported) Entered as Reported by: SEFERINO SEAMAN on 12/26/20 1121 Roflumilast (Daliresp) 500 Mcg Tablet, 500 MCG PO DAILY, (Reported) Entered as Reported by: SHARI DAVIES on 12/25/20 0407 Review of Systems Review of Systems Constitutional: see HPI Other Comments Unable to obtain full ROS due to her clinical condition of being unresponsive and coding on arrival to the ED Past Mhmljat-Tbkadv-Brsnyp Hx Immunizations Up To Date First/Initial COVID19 Vaccinat: 03/18/2021 Second COVID19 Vaccination David: 04/2021 Seasonal Allergies Seasonal Allergies: No Past Medical History Surgery/Hospitalization HX: [facility] on chronic respiratory failure with hypoxia, anxiety, COPD, pretension, type 2 diabetes, kidney failure, cellulitis of left lower extremity, fibromyalgia, chronic pressure ulcers, morbid obesity, peripheral vascular disease, chronic UTIs Surgeries: Yes ("intestinal bypass and 2 c-sections") Gallbladder Respiratory: Yes Pneumonia, COPD Currently Using CPAP: No Currently Using BIPAP: No Cardiac: Yes (CHF) Chronic Edema/Swelling, Hypertension Neurological: No Genitourinary: No Gastrointestinal: No Musculoskeletal: No Endocrine: No HEENT: No Cancer: No Psychosocial: No Integumentary: No Blood Disorders: No Family Medical History Mother- leukemia Father- HTN Physical Exam Vital Signs Capillary Refill : Height, Weight, BMI Height: 5'6.00" Weight: 224lbs. oz. 101.088869yn; 31.00 BMI Method:Stated General Appearance: Chronically ill (Appears older than stated age), Obese, Other (Unresponsive) HEENT: Other (Pupils are fixed and dilated patient has dark blood coming from her oropharynx) Respiratory: Other (No spontaneous respirations diffuse crackles with [id number] ventilations) Cardiovascular: Other (Asystole with no spontaneous heartbeat or pulse) Gastrointestinal: No Pulsatile Mass, Soft, Other (Obese abdomen) Genital/Rectal: Other (Melanotic appearing stool in the adult diaper) Extremity: Pedal Edema Neurologic/Psychiatric: Other (Unresponsive with GCS 3) Skin: Pallor Procedures/Interventions Reason for Intubation: code and unresponsive Date of ETT Placement: Sep 21, 2021 Time of ETT Placement: 04:55 Intubation Method: orotracheal Tube Size: 7.5 Positive End Tide CO2: Yes Breath Sounds after Intubation: left greater than right Intubation Complications: other (bright red blood coming up in ETT) Post Intubation Xray: No Patient was unresponsive and had cardiopulmonary arrest on arrival to the ED. CPR was started and patient was ventilated with bag valve mask ventilation until ET tube was able to be placed. Patient was unresponsive and no medications were administered prior to intubation. She was not biting or fighting intubation at all and had no gag reflex. Using Romero scope the 7.5 ETT was placed without difficulty but she had return of bloody sputum and good color change with ETCO2. She had breath sounds bilaterally but heard better on left than right and had crackles/rales throughout. She had no response or change with ACLS protocol and CPR and it was felt to be futile to proceed with further resuscitation efforts with her fixed and dilated pupils and blood coming from her ETT and blood coming from oropharynx prior to intubation as well as melanotic appearing stool coming from adult diaper. Time of pronounced at 0501 am. Rhythm: Asystole See notes from nurse and in this chart regarding CPR and code with intubation. Pronounced time of at 0501 am. Progress/Results/Core Measures Progress Progress Note : Progress Note See notes from nurses regarding code and medication. It was felt to be futile to continue with CPR efforts with her fixed and dilated pupils and no response to ACLS protocols as well as having blood coming from her mouth and melanotic stools. Time of was pronounced at [address] Espinoza, patient's PCP notified by phone at 0615 am. Departure Impression Primary Impression: Hematemesis Qualified Codes: K92.0 - Hematemesis Additional Impressions: Melena Cardiopulmonary arrest Disposition: 20 (500) Condition: (050) Departure-Patient Inst. Referrals: BROWN ESPINOZA DO (PCP/Family) Primary Care Physician WHITLEY EGAN MD Sep 21, 2021 05:14
== END 2021-09-21 08:31 | disposition expired ==
LOC: EDUNIT# 04:45 → ER FS 04:47
DX: K92.0 Hematemesis (principal); K92.1 Melena; I46.9 Cardiac arrest, cause unspecified; E66.9 Obesity, unspecified; J44.9 Chronic obstructive pulmonary disease, unspecified; I11.0 Hypertensive heart disease with heart failure; I50.9 Heart failure, unspecified; E11.9 Type 2 diabetes mellitus without complications; Z68.31 Body mass index [BMI] 31.0-31.9, adult; Z79.01 Long term (current) use of anticoagulants
CPT/HCPCS: 31500